=== PATIENT | male | born 1935 | race Caucasian/White ===

== ENCOUNTER 2018-10-15 11:07 | Outpatient (REF) | payer MEDICARE, SELFPAY ==
[2018-10-15 21:57] LABS: Anion Gap 4.9 mmol/L (3-11); BUN 13 mg/dL (7-18); CO2 33.1 mmol/L (21.0-32.0); CREATININE 1.02 mg/dL (0.70-1.30); Calcium 8.8 mg/dL (8.5-10.1); Chloride 104 mmol/L (98-107); Cholesterol 135 mg/dL (50-200); Glucose 91 mg/dL (70-100); HDL Cholesterol 41 mg/dL (40-60); LDL CHOLESTEROL 68 mg/dL (<100); Potassium 4.1 mmol/L (3.5-5.1); Sodium 142 mmol/L (136-145); Triglyceride 151 mg/dL (30-150)
[2018-10-19 10:13] LABS: PSA, Diagnostic 0.7 ng/ml (0-6.5)
== END 2018-10-15 11:27 ==
LOC: NCHCN 11:07
PROVIDERS: PCP Internal Medicine; Visit Provider Internal Medicine
DX: E78.5 Hyperlipidemia, unspecified (principal); I10 Essential (primary) hypertension; I25.10 Atherosclerotic heart disease of native coronary artery without angina pectoris; K21.9 Gastro-esophageal reflux disease without esophagitis; C61 Malignant neoplasm of prostate
CPT/HCPCS: 80048; 80061; 83721; 84153

== ENCOUNTER 2018-12-28 22:27 | Outpatient (REF) | payer MEDICARE, SELFPAY ==
[2018-12-28 21:46] LABS: BUN 12 mg/dL (7-18); CREATININE 1.02 mg/dL (0.70-1.30); Calcium 8.7 mg/dL (8.5-10.1); Chloride 101 mmol/L (98-107); Creatine Kinase 90 U/L (39-308); Glucose 127 mg/dL (70-100); Potassium 3.9 mmol/L (3.5-5.1); Sodium 139 mmol/L (136-145)
== END 2018-12-28 22:47 ==
LOC: NCHCN 22:27
PROVIDERS: PCP Internal Medicine; Visit Provider Internal Medicine
DX: R07.9 Chest pain, unspecified (principal)
CPT/HCPCS: 80048; 82550

== ENCOUNTER 2019-01-27 00:13 | Outpatient (CLI) | payer MEDICARE, SELFPAY ==
--- NOTE | 2019-01-27 09:30 | MERGEMPI_ITS ---
*[facility]* *[facility]* [address] [place] [address] Myocardial Perfusion Imaging - SPECT Regadenoson Date of study: 01/27/2019 *PATIENT PRESENTATION* Height: 170.2cm (67in) Blood Pressure: Weight: 80.9kg (178lb) BSA: 1.97m^2 Referring physician: Gavin Jimenez Ordering physician: Shaniqua Mcghee Impressions: Study suggests small to moderate myocardial infarction, with minimal overall ischemia in the territory of the left anterior descending coronary artery. Summary: 1. Myocardial perfusion imaging: There is a moderate sized, moderately intense, predominantly fixed defect involving the apical anterior, apical lateral, and apical wall(s). This suggests moderate myocardial infarction. Overall ischemia: minimal. 2. The calculated left ventricular ejection fraction after stress: 69%. LV global systolic function is normal. No left ventricular regional motion abnormality. 3. Stress ECG conclusions: The stress ECG is negative. Recommendations: 1. Medical management is recommended. 2. Clinical correlation is recommended. Indication: R07.89, Appropriate Use Criteria: A (Appropriate). History: REASON FOR VISIT: RECENT CHEST PAINS WITH A HISTORY OF SIGNIFICANT CAD, STATUS POST NM IN 2001, STATUS POST LAD STENT, HISTORY OF TIA, HTN, HYPERLIPIDEMIA AND PROSTATE CANCER. PT REPORTS HE EXPERIENCED CHEST PAINS DURING THE NIGHT AFTER CHOPPING ICE THIS SPRING. AND AGAIN A WEEK AGO DURING THE NIGHT AT 2AM AFTER EATING CANADIAN FOOD. HE STATES HE TOOK ROLAIDS AND 2 TYLENOL THE CHEST PAIN SUBSIDED AFTER A FEW HOURS. Risk factors: Hypertension. Dyslipidemia. Cholesterol: 135mg/dl. HDL: 41mg/dl. LDL: 68mg/dl. Triglycerides: 151mg/dl. ALLERGIES: NO KNOWN ALLERGIES. MEDICATIONS: ROSUVASTATIN 40 MG Q HS. OMEPRAZOLE 20 MG DAILY. NITROGLYCERIN 0.4 MG PRN. NAPROXEN 500 MG BID. METOPROLOL TARTRATE 50 MG BID. LISINOPRIL 1 TAB JONATHAN. CLOPIDOGREL 75 MG DAILY. ASPRIN 81 MG DAILY. Imaging Technique: Protocol: Christ Salvationadenoson. Acquisition: Gated SPECT; 1 day - rest/stress. The patient was imaged in the supine position. Attenuation correction used. Isotope administration: - Rest. Tc[99m]-sestamibi. Dose: 10.2mCi. Injection time: 09:50 AM. Injection to stress time: 00:45. - Stress. Tc[99m]-sestamibi. Dose: 32mCi. Injection time: 11:14 AM. 1-2 min before end of exercise Baseline ECG: SINUS BRADYCARDIA. HR 54 BPM. Sinus bradycardia. Stress protocol: +--------+--+ + + !Stage !HR!BP (mmHg) !Comments ! +--------+--+ + + !Baseline!54!126/62 (83)! ! +--------+--+ + + !1 min !82!130/60 (83)!Inject Regadenoson.! +--------+--+ + + !3 min !74!132/70 (91)! ! +--------+--+ + + !6 min !71!132/60 (84)! ! +--------+--+ + + * Stress results: The rate-pressure product for the peak heart rate and blood pressure was 71696md Hg/min. Stress ECG: STRESS TEST ENDED IN 6 MINUTES & 45 SECONDS. PT EXPERIENCED NO SIGNIFICANT SIDE EFFECTS FROM LEXISCAN INJECTION. NORMAL HEART RATE AND BLOOD PRESSURE RESPONSE TO LEXISCAN INJECTION. NO ECTOPY. NO ANGINA. NO SIGNIFICANT ST SEGMENT CHANGES. The stress ECG is negative. Myocardial perfusion: Imaging information: gated. Image quality reduced due to diaphragmatic attenuation. Left ventricular size is normal. There is a moderate sized, moderately intense, predominantly fixed defect involving the apical anterior, apical lateral, and apical wall(s). This suggests moderate myocardial infarction. Overall ischemia: minimal. Ventricular Function (Wall Motion): The calculated left ventricular ejection fraction after stress: 69%. LV global systolic function is normal. No left ventricular regional motion abnormality. Study data: Gavin Jimenez MD supervised and was readily available during the procedure. This study was interpreted by [facility]. Study status: Routine. Consent: The risks, benefits, and alternatives to the procedure were explained to the patient and informed consent was obtained. Procedure: Initial setup. A baseline ECG was recorded. Surface ECG leads and manual cuff blood pressure measurements were monitored. Heart sounds: Normal. Lung sounds: Normal. Regadenoson stress test. Stress testing was performed, with regadenoson by intravenous bolus, for a total dose of 0.4mgover 10.00sec, followed by a 5ml saline flush. The infusion was terminated due to per protocol. Study completion: All catheters inserted during the procedure were removed. The patient tolerated the procedure well and was discharged from the lab. Discharge: The patient left the laboratory in stable condition. Birthdate: Patient birthdate: 1935. Sex: Gender: male. Study date: Study date: 01/27/2019. Study time: 00:01 AM. Signature Documentation: - The imaging portion of this study was interpreted by [facility] [employer] [facility] Gavin Jimenez MD. - The Stress ECG portion of this study was interpreted by Gavin Jimenez MD. Electronically signed by Gavin Jimenez 01/27/2019 12:47
[2019-01-27] MEDS: Regadenoson 0.4 MG/5 ML SYR IVP (11:31)
== END 2019-01-27 00:33 ==
PROVIDERS: PCP Internal Medicine; Visit Provider Family Medicine
DX: R07.89 Other chest pain (principal); R94.30 Abnormal result of cardiovascular function study, unspecified; I25.2 Old myocardial infarction; I25.10 Atherosclerotic heart disease of native coronary artery without angina pectoris; I10 Essential (primary) hypertension; E78.5 Hyperlipidemia, unspecified
CPT/HCPCS: 78452; 93016; 93018; 93017; J2785

== ENCOUNTER 2020-04-03 13:43 | Outpatient (REF) | payer MEDICARE, SELFPAY ==
[2020-04-03 21:43] LABS: Anion Gap 5.7 mmol/L (3-11); BUN 14 mg/dL (7-18); CO2 31.3 mmol/L (21.0-32.0); Chloride 103 mmol/L (98-107); Glucose 121 mg/dL (74-106); Potassium 4.4 mmol/L (3.5-5.1); Sodium 140 mmol/L (136-145)
== END 2020-04-03 14:03 ==
LOC: NCHCN 13:43
PROVIDERS: PCP Internal Medicine; Visit Provider Internal Medicine
DX: I10 Essential (primary) hypertension (principal)
CPT/HCPCS: 80048

== ENCOUNTER 2021-04-05 12:39 | Outpatient (REF) | payer MEDICARE, SELFPAY ==
[2021-04-05 13:57] LABS: Anion Gap 5.9 mmol/L (3-11); BUN 10 mg/dL (7-18); CO2 31.1 mmol/L (21.0-32.0); CREATININE 1.1 mg/dL (0.70-1.30); Calcium 9.2 mg/dL (8.5-10.1); Chloride 103 mmol/L (98-107); Glucose 147 mg/dL (74-106); Potassium 4.6 mmol/L (3.5-5.1); Sodium 140 mmol/L (136-145)
== END 2021-04-05 12:40 | disposition home or self-care (01) ==
LOC: NCHCN 12:39
PROVIDERS: PCP Internal Medicine; Visit Provider Internal Medicine
DX: Z00.00 Encounter for general adult medical examination without abnormal findings (principal); C61 Malignant neoplasm of prostate; E78.5 Hyperlipidemia, unspecified
CPT/HCPCS: 80048; 84153

== ENCOUNTER 2021-07-18 09:21 | Outpatient (REF) | payer MEDICARE, SELFPAY ==
[2021-07-18 22:08] LABS: PSA, Screening 2.8 ng/mL (0.0-6.5)
== END 2021-07-18 09:22 | disposition home or self-care (01) ==
LOC: NCHCN 09:21
PROVIDERS: PCP Internal Medicine; Visit Provider Family Medicine
DX: C61 Malignant neoplasm of prostate (principal); Z12.5 Encounter for screening for malignant neoplasm of prostate
CPT/HCPCS: 84153

== ENCOUNTER 2021-10-01 04:14 | Outpatient (CLI) | payer MEDICARE, SELFPAY ==
[2021-10-01 10:40] LABS: Abs Immature Grans 0.02 10^3/uL (0.0-0.06); Absolute Basophil Count 0.06 10^3/uL (0.0-0.2); Absolute Eosinophil Count 0.15 10^3/uL (0.0-0.7); Absolute Lymphocyte Count 2.86 10^3/uL (1.2-3.4); Absolute Monocyte Count 0.78 10^3/uL (0.1-0.8); Absolute Neutrophil Count 5.11 10^3/uL (1.2-6.7); Basophils % 0.7; Eosinophils % 1.7; HCT 48.6 % (40.0-50.0); HGB 16.1 g/dL (13.5-17.5); Immature Grans % 0.2; Lymphocytes % 31.8; MCH 30.6 pg (27.0-33.0); MCHC 33.1 % (32.0-36.0); MCV 92.4 fL (80-95); MPV 12.3 fL (8.0-11.0); Monocytes % 8.7; Neutrophils % 56.9; Nucleated RBC 0 %; Platelet Count 138 10^3/uL (130-400); RBC 5.26 10^6/uL (4.36-5.78); RDW 12.7 % (11.8-14.1); RDW-SD 43.3 fL; WBC 8.98 10^3/uL (4.4-10.8)
[2021-10-01 11:50] LABS: ALT 31 U/L (16-63); AST 25 U/L (15-37); Albumin 3.6 g/dL (3.4-5.0); Alkaline Phosphatase 68 U/L (46-116); Anion Gap 5.3 mmol/L (3-11); BUN 10 mg/dL (7-18); Bilirubin, Total 0.6 mg/dL (0.2-1.0); CO2 32.7 mmol/L (21.0-32.0); CREATININE 1.1 mg/dL (0.70-1.30); Calcium 9.2 mg/dL (8.5-10.1); Chloride 100 mmol/L (98-107); Glucose 131 mg/dL (74-106); Potassium 4.3 mmol/L (3.5-5.1); Sodium 138 mmol/L (136-145); Total Protein 6.9 g/dL (6.4-8.2)
[2021-10-02 13:33] LABS: PSA, Ultrasensitive 3.4 ng/mL (<= 7.2)
== END 2021-10-01 04:15 | disposition home or self-care (01) ==
LOC: LBO 04:14
PROVIDERS: PCP Internal Medicine; Visit Provider Internal Medicine
DX: C61 Malignant neoplasm of prostate (principal)
CPT/HCPCS: 36415; 80053; 84153; 85025

== ENCOUNTER 2021-12-04 01:26 | Outpatient (CLI) | payer MEDICARE, SELFPAY ==
[2021-12-04 14:07] LABS: Abs Immature Grans 0.02 10^3/uL (0.0-0.06); Absolute Basophil Count 0.06 10^3/uL (0.0-0.2); Absolute Eosinophil Count 0.12 10^3/uL (0.0-0.7); Absolute Lymphocyte Count 2.51 10^3/uL (1.2-3.4); Absolute Neutrophil Count 4.53 10^3/uL (1.2-6.7); Basophils % 0.8; Eosinophils % 1.5; HGB 15.9 g/dL (13.5-17.5); Immature Grans % 0.3; MCH 31.1 pg (27.0-33.0); MCHC 33.1 % (32.0-36.0); MCV 93.8 fL (80-95); Monocytes % 7.7; Neutrophils % 57.7; Nucleated RBC 0 %; Platelet Count 129 10^3/uL (130-400); RBC 5.12 10^6/uL (4.36-5.78); RDW 12.5 % (11.8-14.1); RDW-SD 43.4 fL; WBC 7.84 10^3/uL (4.4-10.8)
[2021-12-04 14:58] LABS: ALT 27 U/L (16-63); AST 25 U/L (15-37); Albumin 3.5 g/dL (3.4-5.0); Alkaline Phosphatase 65 U/L (46-116); Anion Gap 4.9 mmol/L (3-11); BUN 9 mg/dL (7-18); Bilirubin, Total 0.5 mg/dL (0.2-1.0); CO2 32.1 mmol/L (21.0-32.0); CREATININE 1.1 mg/dL (0.70-1.30); Calcium 8.5 mg/dL (8.5-10.1); Chloride 102 mmol/L (98-107); Glucose 154 mg/dL (74-106); Potassium 4.2 mmol/L (3.5-5.1); Sodium 139 mmol/L (136-145); Total Protein 6.7 g/dL (6.4-8.2)
[2021-12-06 09:42] LABS: PSA, Ultrasensitive 3.3 ng/mL (<= 7.2)
== END 2021-12-04 01:27 | disposition home or self-care (01) ==
LOC: LBO 01:26
PROVIDERS: PCP Internal Medicine; Visit Provider Internal Medicine
DX: C61 Malignant neoplasm of prostate (principal)
CPT/HCPCS: 36415; 80053; 84153; 85025

== ENCOUNTER 2021-12-05 01:50 | Outpatient (CLI) | payer MEDICARE, SELFPAY ==
--- NOTE | 2021-12-05 08:30 | DI.NM_ITS ---
Exam(s) NM BONE SCAN WHOLE BODY GRP EXAM: NM BONE SCAN WHOLE BODY GRP CLINICAL HISTORY: PROSTATE CANCER C61, S/P DEFINITIVE THERAPY W/ RISING PSA. TECHNIQUE: Injected Dose: 25 mCi Tc-99m MDP Delayed Images: 2-3 hours. COMPARISON: Scan performed today was reviewed FINDINGS: There is uptake in both sides of the left knee consistent with degenerative change. There is a small focus of increased uptake seen in the mid left femur, possibly significant. There a re no other foci of increased uptake in the lower extremities nor elsewhere in the skeleton. IMPRESSION: 1. Small focus of increased uptake seen just below the mid aspect of the left femur. Recommend plain films of the left femur. 2. Some uptake in the left knee consistent with degenerative change. No abnormal uptake in the oppo site-right knee. DATA REPOSITORY:
--- NOTE | 2021-12-05 10:40 | DI.CT_ITS ---
Exam(s) CT CHEST/ABD/PEL W EXAM: CT CHEST/ABD/PEL W CLINICAL HISTORY: PROSTATE CANCER C61. TECHNIQUE: Imaging Protocol: Axial computed tomography images with coronal and sagittal reformatted images were created and reviewed CONTRAST MATERIAL: Intravenous: Omnipaque 350 Contrast volume:100 ml Oral: None COMPARISON: CT CHEST FOR PULMONARY EMBOLUS from 09/01/2014 FINDINGS: CHEST: LUNGS: No infiltrates nor ominous pulmonary nodules. There are no pleural effusions.. MEDIASTINUM: There is no hilar nor mediastinal adenopathy. Visualized thyroid unremarkable. CARDIAC: Heart size upper normal. No pericardial effusion.Caliber of the thoracic aorta is within no rmal limits. OSSEOUS: No lytic nor blastic lesions identified. ABDOMEN: There is no ascites. LIVER: There are no focal hepatic lesions nor dilatation of intrahepatic ducts. GALLBLADDER/BILIARY: There is a 1.2 x 1.2 cm gallstone evident in the gallbladder neck. Gallbladder wall is not truly edematous and the gallbladder is not distended. CBD is not dilated. No dilatation of intrahepatic ducts. PANCREAS: No evidence of pancreatic mass nor dilatation of the pancreatic duct. SPLEEN: Spleen is not enlarged. There is a small splenule noted medial to the spleen, measuring 1.3 x 1.3 cm. There is a 7 millimeter cyst in the posterior aspect of the spleen. Another cyst measurin g 1.2 cm is seen in the medial aspect the spleen. Splenic and portal veins are patent. ADRENALS: There are no significant adrenal masses. KIDNEYS: No calculi nor hydronephrosis. No solid renal masses. There are multiple cysts in the right kidney, the largest measuring 1.2 cm. Lesser amount of cysts noted in the left clean the. The large st measures 1 cm, located in the superior pole. There are no hydronephrosis. No hydroureter. ABDOMINAL AORTA: Calcified but not enlarged. Common iliac arteries are not enlarged. LYMPH NODES: There is no retroperitoneal nor paraaortic adenopathy. ABDOMINAL WALL: No evidence of significant anterior abdominal wall nor inguinal hernia. GI: There is no evidence of bowel obstruction. PELVIS: LYMPH NODES: There is no intrapelvic nor inguinal adenopathy. GI: No evidence of appendicitis.No evidence of sigmoid diverticulitis. URINARY BLADDER: No calculi nor masses evident REPRODUCTIVE: There are surgical clips in the region of the nonenlarged prostate. There is no adjace nt obturator adenopathy. No adenopathy along the internal iliac vessels. OSSEOUS: No significant osseous lesions. IMPRESSION: 1. No evidence of metastatic disease nor lymphadenopathy in the chest, abdomen, and pelvis. 2. Clips are seen in the region of the prostate. Prostate itself is not significantly enlarged. 3. Multiple small cysts in the kidneys, no solid renal masses. No hydronephrosis. 4. Cholelithiasis. There is a single prominent calcified gallstone in the gallbladder neck region. Gallbladder is not distended nor obviously edematous and there is no dilatation of the CBD nor of int rahepatic ducts. There are 2 small cysts in the spleen. RADIATION DOSE DELIVERED: 2,188.95mGy.cm Total DLP DATA REPOSITORY: All CT scans at this facility are submitted to the National Radiology Data Registry (NRDR) Dose Index Registry (DIR) with the [employer] (ACR). RADIATION OPTIMIZATION: All CT scans at this facility use at least one of these dose optimization te chniques: automated exposure control; mA and/or kV adjustment per patient size (includes targeted exa ms where dose is matched to clinical indication); or iterative reconstruction.
[2021-12-05] MEDS: Breeza Beverage 473 ML BTL PO ×2 (10:55→10:57)
[2021-12-05] MEDS: Omnipaque 350 MG/ML 50 ML BTL PO (10:56)
[2021-12-05] MEDS: Normal Saline Flush 10 ML SYR IVP (10:56)
[2021-12-05] MEDS: Omnipaque 350 MG/ML 100 ML BTL IJ (10:57)
== END 2021-12-05 02:10 ==
PROVIDERS: PCP Internal Medicine; Visit Provider Nurse Practitioner Adult Health
DX: C61 Malignant neoplasm of prostate (principal); K80.20 Calculus of gallbladder without cholecystitis without obstruction; N28.1 Cyst of kidney, acquired
CPT/HCPCS: 74177; 78306; 71260; J3490; Q9967

== ENCOUNTER 2022-01-29 22:28 | Outpatient (REF) | payer MEDICARE, SELFPAY | END 2022-01-29 22:29 | disposition home or self-care (01) | LOC: NCHCN 22:28 | PROVIDERS: PCP Internal Medicine; Visit Provider Nurse Practitioner Family | DX: R31.9 Hematuria, unspecified (principal) | CPT/HCPCS: 87086 ==

== ENCOUNTER 2022-02-11 16:16 | Outpatient (REF) | payer MEDICARE, SELFPAY ==
[2022-02-11 20:28] LABS: Bilirubin Negative (Negative); Blood Large (Negative); Clarity Cloudy (Clear); Glucose Negative (Negative); Ketones Negative (Negative); Leukocyte Esterase Large (Negative); Nitrite Positive (Negative); Specific Gravity 1.025 (1.005-1.025); Urobilinogen 0.2 EU/dL (Up TO 0.2)
[2022-02-11 21:26] LABS: RBC >50 HPF (0-2); WBC >50 HPF (0-5)
[2022-02-11 21:27] LABS: C & S Indicated? C&S Done As Ordered
== END 2022-02-11 16:17 | disposition home or self-care (01) ==
LOC: NCHCN 16:16
PROVIDERS: PCP Internal Medicine; Visit Provider Internal Medicine
DX: R31.9 Hematuria, unspecified (principal)
CPT/HCPCS: 87077; 81003; 81015; 87086; 87186

== ENCOUNTER → 2022-02-15 14:44 | Outpatient (BNVA) | payer MEDICARE, SELFPAY | PROVIDERS: PCP Internal Medicine; Referring Provider Internal Medicine; Visit Provider Urology | DX: Z79.01 Long term (current) use of anticoagulants (principal); R31.0 Gross hematuria | CPT/HCPCS: 99204 ==

== ENCOUNTER 2022-03-01 12:26 | Outpatient (REF) | payer MEDICARE, SELFPAY ==
[2022-03-01 12:33] LABS: Source Nasal/Nares
[2022-03-01 15:13] LABS: COVID-19 PCR Negative (Negative)
== END 2022-03-01 12:27 | disposition home or self-care (01) ==
LOC: LBN 12:26
PROVIDERS: PCP Internal Medicine; Visit Provider Urology
DX: Z20.822 Contact with and (suspected) exposure to COVID-19 (principal); Z01.818 Encounter for other preprocedural examination
CPT/HCPCS: 87635; U0005

== ENCOUNTER 2022-03-04 07:19 | Day surgery (SDC) | payer MEDICARE, SELFPAY ==
--- NOTE | 2022-03-04 06:16 | W.ANESPRE ---
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 Resection Bladder Tumor Conrado Day MD Meds Allergies and Home Medications Allergies Allergy/AdvReac Type Severity Reaction Status Date / Time No Known Allergies Allergy Unverified 03/04/22 07:43 Home Medication Medication Instructions Recorded lisinopril 10 mg tablet 1 tab PO DAILY 12/10/12 metoprolol tartrate 50 mg tablet 50 mg PO BID 12/10/12 omeprazole 20 mg capsule,delayed 20 mg PO DAILY@0730 12/10/12 release rosuvastatin 40 mg tablet (Crestor) 40 mg PO HS 12/10/12 clopidogrel 75 mg tablet (Plavix) 75 mg PO DAILY #30 tabs 12/12/12 nitroglycerin 0.4 mg sublingual 1 tab PO PRN PRN 09/01/14 tablet (Nitrostat) naproxen 500 mg tablet 500 mg PO BID pericarditis #60 tabs 09/02/14 Current Visit Medications: Current Medications Generic Name Dose Route Start Last Admin Trade Name Freq PRN Reason Stop Dose Admin Ringer's Solution 1,000 mls @ 80 mls/hr 03/04/22 06:00 IV 03/31/22 23:59 INFUSION BHASKAR Cefazolin Sodium/Dextrose 2 gm in 50 mls @ 100 mls/hr 03/04/22 06:00 Ancef Duplex IVPB 03/31/22 23:59 PREOP BHASKAR IV Miscellaneous Supplies 1 each 03/04/22 06:00 Iv Access IV 03/31/22 23:59 DIRECTED BHASKAR Sodium Chloride 0 ml 03/04/22 06:00 Normal Saline Flush 10 Ml Syr IV 03/31/22 23:59 PRN PRN Sodium Chloride 0 ml 03/04/22 06:00 Normal Saline 10 Ml Vial IJ 03/31/22 23:59 DIRECTED PRN Sterile Water 0 ml 03/04/22 06:00 Water,Injection,Sterile 10 Ml Vial IJ 03/31/22 23:59 DIRECTED PRN PFSH Active Problems Active Problems: Problem Status Onset Code Atypical chest pain 09/01/14 R07.89 Coronary artery disease I25.10 Hypertension I10 Hyperlipidemia E78.5 Thrombocytopenia D69.6 GERD (gastroesophageal reflux disease) K21.9 H/O prostate cancer Z85.46 Lower urinary tract symptoms (LUTS) R39.9 h/o tia Benign head tremor G25.0 Acne rosacea L71.9 Medical History Medical History Gross hematuria Hiatal hernia Surgical History Surgical History H/O hernia repair Hx of heart artery stent [id number] F/U with PCP at [facility] Tobacco Smoking/Tobacco Use Status: Former Tobacco Use Alcohol Alcohol Intake: never Substance Use Substance use: Never Substance use type: does not use Vital Signs and Lab Results Lab Results Blood Type / Crossmatch: No Data to Display Complete Blood Count: No Data to Display Complete Metabolic Panel: No Data to Display Liver Function Panel: No Data to Display Coagulation Panel: No Data to Display Cardiac Panel: No Data to Display Arterial Blood Gas: No Data to Display Venous Blood Gas: No Data to Display Pancreas Panel: No Data to Display Thyroid Panel: No Data to Display Infectious Disease: Coronavirus (COVID-19)(PCR) Negative (Negative) 03/01/22 09:45 Coronavirus 2019 Source Nasal/Nares 03/01/22 09:45 Blood Cultures: No Data to Display Toxicology Panel: No Data to Display Imaging and Studies Imaging and Studies Study information below may be from another EMR and interpreted by another provider. Please see original notes in EMR for more complete details. Stress Test Summary: 01/2019: moderate sized, moderately intense, predominantly fixed defect involving the apical anterior apical later, and apical johnson - suggests MO. overall minimal ischemia. LVEF 69%. Echocardiogram Summary: 08/2014: LVEF 55-60%, small pericardial effusion. Carotid Artery Summary:: 12/02: no significant stenosis. Anesthesia Assessment and Plan Anesthesia History Personal History: No History of Anesthesia Complications Family History: No Family History of Anesthesia Complications Exercise Tolerance Exercise Tolerance: Metabolic Equivalents<4 Cardiac & Pulmonary Exam Cardiac Exam: Normal S1/S2 Heart Sounds Pulmonary Exam: Clear Bilateral Breath Sounds Implantable Cardiac Device Does patient have a Pacemaker or an ICD?: No Airway Exam Known Difficult Airway: No Mallampati Class: 3 Mouth Opening: Normal (> 3cm) Thyromental Distance: Greater than 3 cm Neck Range of Motion: Limited ROM Neck Circumference: Normal Teeth Condition: Generalized Poor Dentition and Other (States all of his top teeth are loose. He was informed that sometimes loose teeth my fall out/come out if we have to place an airway. ) ASA Classification ASA Score: ASA 3 Emergency Case?: No NPO Status NPO Status: NPO Clears >2 hours, Solids >8 hours Anesthesia Plan Resuscitation Status: Full Code Anesthesia Technique: General Anesthesia Airway Planned: Natural Airway Monitors Used: Standard Monitors Preoperative Comments:: 86 yo male with hematuria for cysto. Sig PMHx: HTN (lisinopril, metoprolol) , CAD (NTG/stent x 2), CVA/TIA (plavix), GERD (omeprazole).
[2022-03-04 07:47] VITALS: BP 156/64; PULSE 69; RESP 18; TEMP 36.5; O2SAT 97
--- NOTE | 2022-03-04 08:07 | W.PM.HP.N ---
Date of service: 03/04/22 Time of Service: 08:07 Assessment and Plan Assessment and plan (1) H/O prostate cancer: Status: Chronic (2) Gross hematuria: Assessment and plan: For cystoscopy and possible TURBT, possible fuguration of prostate or bladder bleeders History of Present Illness History of Present Illness Chief Complaint: Gross hematuria Narrative: This is an 86-year-old gentleman who has a history of prostate cancer that was diagnosed over 10 years ago. He was treated with a combination of androgen deprivation and external beam radiation. His PSA has been rising and he has been evaluated by medical oncology. The patient elected not to restart androgen deprivation. He had a bone scan and CT of the abdomen and pelvis which demonstrated no metastatic lesions. He has been having intermittent episodes of gross painless hematuria. He has a previous history of smoking but quit back in 1988. His urine culture showed no significant infection. He presents for cystoscopy to complete his hematuria work-up. Review of Systems Narrative: No fevers or chills No vision change or dysphasia No diabetes or thyroid dysfunction No shortness of breath, cough or hemoptysis No chest pain or palpitations Hx GERD. No hepatitis, ulcers, jaundice Hx TIA. No seizures or peripheral neuropathy On Plavix routinely. No gout PFSH All Active Problems Atypical chest pain (Acute 09/01/14) Coronary artery disease (Chronic) a. S/p SC 2001 presenting with chest pain b. S/p SC 2005 presenting with exertional dyspnea c. S/p LAD stenting d. Negative stress echo 2009 Hypertension (Chronic) Hyperlipidemia (Chronic) Thrombocytopenia (Chronic) GERD (gastroesophageal reflux disease) (Chronic) H/O prostate cancer (Chronic) a. T2N0M0 january score 9 b. S/p radiation treatment and androgen deprivation therapy Lower urinary tract symptoms (LUTS) (Chronic) h/o tia (Chronic) a. transient speech deficit b. Chronic Plavix since Benign head tremor (Chronic) Acne rosacea (Chronic) Medical History Gross hematuria Hiatal hernia Surgical History H/O hernia repair Hx of heart artery stent [id number] F/U with PCP at [facility] Social History Smoking/Tobacco Use Status: Former Tobacco Use Quit Date: 09/22/94 Smoking risk assessment performed?: Yes Alcohol Intake: never Drug use: Never Substance use type: does not use Do you feel safe at home: Yes Do you feel safe in your relationship?: Yes Additional Social history: unable to assess [facility] [employer] Allergies and Home Medications Allergies Allergy/AdvReac Type Severity Reaction Status Date / Time No Known Allergies Allergy Unverified 03/04/22 07:43 Home Medications Medication Instructions Recorded Confirmed Type lisinopril 10 mg tablet 1 tab PO DAILY 12/10/12 03/04/22 History metoprolol tartrate 50 mg tablet 50 mg PO BID 12/10/12 03/04/22 History omeprazole 20 mg capsule,delayed 20 mg PO DAILY@0730 12/10/12 03/04/22 History release rosuvastatin 40 mg tablet (Crestor) 40 mg PO HS 12/10/12 03/04/22 History clopidogrel 75 mg tablet (Plavix) 75 mg PO DAILY #30 tabs 12/12/12 03/04/22 Rx nitroglycerin 0.4 mg sublingual 1 tab PO PRN PRN 09/01/14 03/01/22 History tablet (Nitrostat) naproxen 500 mg tablet 500 mg PO BID pericarditis #60 tabs 09/02/14 03/01/22 Rx Exam Const General: cooperative and no acute distress Neck Neck: supple Resp Effort & Inspection: normal respiratory effort Auscultation: clear to auscultation bilaterally Cardio Rate: regular rate Rhythm: regular rhythm GI Palpation: soft and no masses Neuro General: patient alert, patient awake and patient oriented x3 Results Last Vital Signs Temp 36.5 C 03/04/22 07:47 Pulse 69 03/04/22 07:47 Resp 18 03/04/22 07:47 BP 156/64 H 03/04/22 07:47 Pulse Ox 97 03/04/22 07:47
[2022-03-04] MEDS: Lactated Ringers 1,000 ML 80 ML IV (08:08)
[2022-03-04 08:14] VITALS: BMI 29.0
--- NOTE | 2022-03-04 09:00 | RT.EKG_ITS ---
APPROVED REPORT Exam: Resting ECG Reason for Exam: ? new onset a-fib Patient Location: O HR:68 bpm ECG Measurements Heart Rate 68 AXIS W[place] [id number] P [id number] QRSd 80 QRS -20 QT 399 T 32 QTc 425 Conclusion Atrial fibrillation...V-rate 51- 85, irreg A-activity
--- NOTE | 2022-03-04 09:09 | W.PM.DSUDISC ---
Discharge Plan Disposition Patient Disposition: HOME Condition: Stable Discharge Details Reason For Visit: hematuria Attending Provider: Conrado Day Primary Care Provider: Kit Metcalf Home Meds and New Rx's Prescriptions: No Action rosuvastatin [Crestor] 40 MG tablet 40 mg PO HS lisinopril 10 MG tablet 1 tab PO DAILY metoprolol tartrate 50 MG tablet 50 mg PO BID omeprazole 20 MG capsule,delayed release(DR/EC) 20 mg PO DAILY@0730 clopidogrel [Plavix] 75 MG tablet 75 mg PO DAILY Qty: 30 0RF nitroglycerin [Nitrostat] 0.4 MG tablet, sublingual 1 tab PO PRN PRN naproxen 500 MG tablet 500 mg PO BID Qty: 60 0RF Discharge Instructions Additional Instructions: continue all home medications contact PCPs office to arrange evaluation of new onset atrial fibrillation once cleared by your PCP, my office will reschedule your surgical procedure Activity:: Activity as Tolerated Diet:: As Tolerated Discharge Orders Discharge Orders: Discharge Order (Routine); Ordered 03/04/22 Ordered By: Conrado Day DS: Diagnosis Discharge Diagnosis (1) H/O prostate cancer: Status: Chronic (2) Gross hematuria:
--- NOTE | 2022-03-04 10:14 | ANES.POST_ITS ---
Postoperative Evaluation Date, Time and Location Date Performed: 03/04/22 Time Performed: 10:14 Patient Location: Day Surgery Unit Vital Signs Most Recent Imported Vital Signs: Most Recent Vital Signs Temp Pulse Resp BP Pulse Ox 36.5 C 69 18 156/64 H 97 03/04/22 07:47 03/04/22 07:47 03/04/22 07:47 03/04/22 07:47 03/04/22 07:47 Pain Score Most Recent Pain Score: Most Recent Pain Score Pain Level 0 03/04/22 07:47 Assessment Mental Status: Awake (Alert & Oriented to Patient Baseline) Airway and Respiratory Function: Patent airway with normal (patient baseline) respiratory exam Cardiovascular Function: Hemodynamically Stable Hydration Status: Adequately Hydrated Nausea & Vomiting: No Nausea or Vomiting Pain: Pt. Denies Any Pain Peripheral Nerve Block: Patient did not receive a nerve block Teaching Patient Teaching: Advised to seek followup for the following concerns (See e xplanation) Concerns: New Onset Atrial Fibrillation Postoperative Comments:: Case was canceled due to new atrial fibrillation noted on the monitor. He was returned to [facility] and a 12 lead was done to confirm. It was discussed with the pt and his that new onset atrial fibrillation unfortunately is why he was canceled as it holds an increased risk of complications when not previously undiagnosed. the 12 lead confirms this Dx. His PCP was notified by [facility] that he will need to follow up, and he and his where instructed to follow up with his PCP.
[2022-03-04 10:20] VITALS: BP 161/92; PULSE 73; RESP 16; TEMP 36.5; O2SAT 98
== END 2022-03-04 10:15 | disposition home or self-care (01) ==
PROVIDERS: PCP Family Medicine; Visit Provider Urology
PROC: 0TBB8ZZ Excision of Bladder, Via Natural or Artificial Opening Endoscopic (ICD-10-PCS; principal; 2022-03-04 08:15)
DX: Z53.09 Procedure and treatment not carried out because of other contraindication (principal); I48.91 Unspecified atrial fibrillation; R31.0 Gross hematuria; Z85.46 Personal history of malignant neoplasm of prostate; I25.10 Atherosclerotic heart disease of native coronary artery without angina pectoris; I10 Essential (primary) hypertension; E78.5 Hyperlipidemia, unspecified; D69.6 Thrombocytopenia, unspecified; Z79.01 Long term (current) use of anticoagulants
CPT/HCPCS: 99214

== ENCOUNTER 2022-03-06 02:28 | Outpatient (CLI) | payer MEDICARE, SELFPAY ==
[2022-03-06 14:08] LABS: Abs Immature Grans 0.01 10^3/uL (0.0-0.06); Absolute Basophil Count 0.04 10^3/uL (0.0-0.2); Absolute Lymphocyte Count 2.02 10^3/uL (1.2-3.4); Absolute Monocyte Count 0.59 10^3/uL (0.1-0.8); Absolute Neutrophil Count 4.41 10^3/uL (1.2-6.7); Basophils % 0.6; Eosinophils % 1.4; HGB 15.1 g/dL (13.5-17.5); Immature Grans % 0.1; Lymphocytes % 28.2; MCH 31.3 pg (27.0-33.0); MCHC 33.6 % (32.0-36.0); MCV 93 fL (80-95); MPV 12.3 fL (8.0-11.0); Monocytes % 8.2; Neutrophils % 61.5; Platelet Count 119 10^3/uL (130-400); RBC 4.82 10^6/uL (4.36-5.78); RDW 12.8 % (11.8-14.1); RDW-SD 43.8 fL; WBC 7.17 10^3/uL (4.4-10.8)
[2022-03-06 14:50] LABS: ALT 21 U/L (16-63); AST 20 U/L (15-37); Albumin 3.2 g/dL (3.4-5.0); Alkaline Phosphatase 69 U/L (46-116); Anion Gap 5.5 mmol/L (3-11); BUN 13 mg/dL (7-18); Bilirubin, Total 0.5 mg/dL (0.2-1.0); CO2 31.5 mmol/L (21.0-32.0); CREATININE 1.2 mg/dL (0.70-1.30); Calcium 8.3 mg/dL (8.5-10.1); Chloride 104 mmol/L (98-107); Estimated GFR 57.54 (mL/min/1.73m2); Glucose 129 mg/dL (74-106); Sodium 141 mmol/L (136-145); Total Protein 6.5 g/dL (6.4-8.2)
[2022-03-08 08:38] LABS: PSA, Ultrasensitive 3.1 ng/mL
== END 2022-03-06 02:29 | disposition home or self-care (01) ==
LOC: LBO 02:28
PROVIDERS: Urology; PCP Family Medicine; Visit Provider Internal Medicine
DX: C61 Malignant neoplasm of prostate (principal)
CPT/HCPCS: 36415; 80053; 84153; 99281; 85025; 99282

== ENCOUNTER 2022-03-06 22:28 | Emergency (ER) | payer MEDICARE, SELFPAY ==
[2022-03-06 22:35] VITALS: BP 187/87; PULSE 70; RESP 19; TEMP 36.6; O2SAT 99
--- NOTE | 2022-03-06 23:04 | ED.GENADUL_ITS ---
Discharge Plan Disposition Patient Disposition: HOME Condition: Stable Discharge Details Clinical Impression: Gross hematuria Primary Care Provider: Kit Metcalf ED Provider: Pacheco Orozco Home Meds and New Rx's Prescriptions: Continued rosuvastatin [Crestor] 40 MG tablet 40 mg PO HS lisinopril 10 MG tablet 1 tab PO DAILY metoprolol tartrate 50 MG tablet 50 mg PO BID omeprazole 20 MG capsule,delayed release(DR/EC) 20 mg PO DAILY@0730 clopidogrel [Plavix] 75 MG tablet 75 mg PO DAILY Qty: 30 0RF nitroglycerin [Nitrostat] 0.4 MG tablet, sublingual 1 tab PO PRN PRN naproxen 500 MG tablet 500 mg PO BID Qty: 60 0RF Discharge Instructions Instructions: Hematuria (ED) Additional Instructions: The new medication you are taking the Xarelto is a different kind of blood thinner than the aspirin and plavix you have taken. It is going to make the blood in your urine worse while you take it. Follow up with your primary care provider and consider holding the xarelto until you have your cystoscopy if you have abdominal pain, fevers, chills, or severe back pain return to the emergency department. Medical Decision Making 86 yo male with years of blood in his urine, he states visible blood, comes in with continued blood in his urine. He was supposed to have a cystoscopy earlier this week but was cancelld because he was found to be in rate controlled afib that he has never been found to have before. HE followed up with his pcp and was started on xarelto and has had two doses of it and he noticed his urine appeared more bloody than normal so came here. He states he otherwise feels fine and at his baseline. He states he always has some trouble completely emptying his bladder but doesn't feel like it is worse now and feels it is at his baseline. He denies dysuria, fevers, chills, abdominal pain. He has no abdominal tenderness or cva tenderness. He does have gross hematuria but is urinating on his own. I discussed with him that being on the xarelto will not unexpectedly make his urine appear more bloody. He doesn't want to have a chandler as he is able to urinate which I feel is reasonable. I also offered to do a cbc and coags but he again declined to have this done which also seems reasonable given he has no new symptoms. He states he wants to follow up with his pcp and urology before deciding if he wants to stop taking the xarelto or not. He did not want any testing done and had capacity to make his own decisions and given he is urinating and has no new symptoms feel this is reasonable. He will follow up with his pcp and urology, return precautions given Differential Diagnosis Differential Diagnosis: chronic gross hematuria, prostate cancer Medical Records Medical records reviewed: Yes I reviewed the patient's medical records. HPI General Mode of arrival: ambulatory . Date/Time Provider Initiated Documentation: 03/06/22 22:48 . Limitations to Documentation: no limitations . Information obtained by: patient . History of Present Illness 86 year old M presents to the emergency department with the chief complaint of blood in urine, Patient started experiencing this year(s) and it has been constant. No relieving factors improve symptom(s), No exacerbating factors reported . Patient notes no other symptoms.. Related Data Home Medications Medication Instructions Recorded Confirmed lisinopril 10 mg tablet 1 tab PO DAILY 12/10/12 03/06/22 metoprolol tartrate 50 mg tablet 50 mg PO BID 12/10/12 03/06/22 omeprazole 20 mg capsule,delayed 20 mg PO DAILY@0730 12/10/12 03/06/22 release rosuvastatin 40 mg tablet (Crestor) 40 mg PO HS 12/10/12 03/06/22 clopidogrel 75 mg tablet (Plavix) 75 mg PO DAILY #30 tabs 12/12/12 03/06/22 nitroglycerin 0.4 mg sublingual 1 tab PO PRN PRN 09/01/14 03/06/22 tablet (Nitrostat) naproxen 500 mg tablet 500 mg PO BID pericarditis #60 tabs 09/02/14 03/06/22 Previous Rx's Medication Instructions Recorded clopidogrel 75 mg tablet (Plavix) 75 mg PO DAILY #30 tabs 12/12/12 naproxen 500 mg tablet 500 mg PO BID pericarditis #60 tabs 09/02/14 Allergies Allergy/AdvReac Type Severity Reaction Status Date / Time No Known Allergies Allergy Unverified 03/06/22 22:39 General Stated Complaint: Urinary MILLIE: 3 Review of Systems All systems reviewed & are unremarkable except as noted in HPI and below Constitutional Constitutional: Denies chills, Denies fever(s) and Denies weakness Cardiovascular Cardiovascular: Denies chest pain and Denies dyspnea Respiratory Respiratory: Denies cough and Denies dyspnea Gastrointestinal Gastrointestinal: Denies abdominal pain, Denies nausea and Denies vomiting Integumentary/Breasts Skin/Breast: Denies rash Neurologic Neurologic: Denies weakness PFSH All Active Problems (Updated 03/06/22 @ 23:06 by Pacheco Orozco MD) Gross hematuria (Acute) Atypical chest pain (Acute 09/01/14) Coronary artery disease (Chronic) a. S/p CT 2001 presenting with chest pain b. S/p CT 2005 presenting with exertional dyspnea c. S/p LAD stenting d. Negative stress echo 2009 Hypertension (Chronic) Hyperlipidemia (Chronic) Thrombocytopenia (Chronic) GERD (gastroesophageal reflux disease) (Chronic) H/O prostate cancer (Chronic) a. T2N0M0 january score 9 b. S/p radiation treatment and androgen deprivation therapy Lower urinary tract symptoms (LUTS) (Chronic) h/o tia (Chronic) a. transient speech deficit b. Chronic Plavix since Benign head tremor (Chronic) Acne rosacea (Chronic) Medical History (Updated 03/06/22 @ 23:06 by Pacheco Orozco MD) Gross hematuria Hiatal hernia Surgical History H/O hernia repair Hx of heart artery stent [id number] F/U with PCP at [facility] Social History Smoking/Tobacco Use Status: Former Tobacco Use Quit Date: 09/22/94 Smoking risk assessment performed?: Yes Alcohol Intake: never Drug use: Never Substance use type: does not use Do you feel safe at home: Yes Do you feel safe in your relationship?: Yes Additional [facility] Ex[facility] Const General: no acute distress Orientation: alert HENMT Head: normal to inspection Ears: external ears normal General nose exam: external nose normal Mouth: moist mucous membranes Eyes General: appearance normal, both eyes and all related structures Neck Neck: normal visual inspection Resp Effort & Inspection: normal respiratory effort and able to speak in complete sentences Cardio Rate: regular rate Skin General skin exam: no rashes or lesions noted Neuro General: patient alert and patient oriented x3 Extrem General: normal to inspection Psych Mental Status: mental status grossly normal Course Vital Signs Vital signs: Vital Signs Temperature 36.6 C 03/06/22 22:35 Pulse 70 03/06/22 22:35 Respiratory Rate 19 03/06/22 22:35 Blood Pressure 187/87 H 03/06/22 22:35 Pulse Oximetry 99 03/06/22 22:35 Temperature 36.6 C 03/06/22 22:35 Temperature Source Tympanic 03/06/22 22:35 Pulse 70 03/06/22 22:35 Respiratory Rate 19 03/06/22 22:35 Respiratory Effort 03/06/22 22:41 Blood Pressure 187/87 H 03/06/22 22:35 Blood Pressure Position Supine 03/06/22 22:35 Pulse Oximetry 99 03/06/22 22:35 Oxygen Delivery Method Room Air 03/06/22 22:35 Oxygen Flow Rate 0 03/06/22 22:35 Pain Level 0 03/06/22 22:41
[2022-03-06 23:15] VITALS: BP 132/76; PULSE 88; RESP 18; O2SAT 98
== END 2022-03-06 23:53 | disposition home or self-care (01) ==
PROVIDERS: Emergency Provider Emergency Medicine; PCP Family Medicine
DX: R31.0 Gross hematuria (principal); I48.91 Unspecified atrial fibrillation; Z79.01 Long term (current) use of anticoagulants; I10 Essential (primary) hypertension
CPT/HCPCS: 99281; 99282

== ENCOUNTER 2022-03-18 15:31 | Outpatient (REF) | payer MEDICARE, SELFPAY ==
[2022-03-18 19:15] LABS: HCT 48.5 % (40.0-50.0); HGB 16.4 g/dL (13.5-17.5); MCH 31.5 pg (27.0-33.0); MCHC 33.8 % (32.0-36.0); MCV 93 fL (80-95); Platelet Count 134 10^3/uL (130-400); RBC 5.21 10^6/uL (4.36-5.78); RDW 12.9 % (11.8-14.1); RDW-SD 44.2 fL; WBC 8.73 10^3/uL (4.4-10.8)
[2022-03-18 19:40] LABS: ALT 28 U/L (16-63); AST 25 U/L (15-37); Albumin 3.5 g/dL (3.4-5.0); Alkaline Phosphatase 66 U/L (46-116); Anion Gap 4.5 mmol/L (3-11); BUN 10 mg/dL (7-18); Bilirubin, Total 0.5 mg/dL (0.2-1.0); CO2 31.5 mmol/L (21.0-32.0); Chloride 102 mmol/L (98-107); Glucose 120 mg/dL (74-106); Potassium 4.7 mmol/L (3.5-5.1); Sodium 138 mmol/L (136-145); TSH (W/Ref FT4) 0.99 uIU/mL (0.36-3.74); Total Protein 6.7 g/dL (6.4-8.2)
== END 2022-03-18 15:32 | disposition home or self-care (01) ==
LOC: NCHCN 15:31
PROVIDERS: PCP Family Medicine; Visit Provider Family Medicine
DX: I48.0 Paroxysmal atrial fibrillation (principal); R31.9 Hematuria, unspecified
CPT/HCPCS: 80053; 85027; 84443

== ENCOUNTER → 2022-04-02 01:46 | Outpatient (CLI) | payer MEDICARE, SELFPAY ==
--- NOTE | 2022-04-02 14:00 | DI.US_ITS ---
APPROVED REPORT EXAM: Comprehensive 2D, Doppler, and color-flow Echocardiogram Patient Location: Out-Patient Discharge Planner: Faiza Engel RDCS (AE) Indications: A Fib h/o CAD Other Information Study Quality: Adequate Conclusion Normal left ventricular wall thickness and chamber size. Estimated ejection fraction is 55 to 60%. Wall motion is normal Normal right ventricular size and systolic function Left atrium is mildly dilated. The right atrium is normal in size Aortic valve is trileaflet and sclerotic with mild regurgitation. There is no aortic stenosis Normal mitral valve with mild regurgitation Normal tricuspid valve with trace to mild regurgitation. Estimated right ventricular systolic pressu re is 28 mmHg Patient was in atrial fibrillation with a controlled rate throughout the study Wall motion Left Ventricle The left ventricle is normal size. The left ventricular systolic function is normal. The left ventric ular ejection fraction is within the normal range. There is normal left ventricular wall thickness. T here is normal LV segmental wall motion. There is no ventricular septal defect visualized. LVEF is 55 -60%. Right Ventricle The right ventricle is normal size. The right ventricular systolic function is normal. The RVSP is 28 .5mmHg. Atria The left atrium size is mildly dilated The right atrium size is normal. The interatrial septum is int act with no evidence for an atrial septal defect. Aortic Valve The Aortic valve is sclerotic. Aortic valve is trileaflet. There is no aortic valvular stenosis. Mild aortic regurgitation. Mitral Valve The mitral valve is normal in structure. No evidence of mitral valve stenosis. Mild mitral regurgitat ion. Tricuspid Valve The tricuspid valve is normal in structure. There is no tricuspid valve stenosis. Trace to mild tricu spid regurgitation. Pulmonic Valve The pulmonary valve is normal in structure. There is no pulmonic valvular stenosis. Trace pulmonic re gurgitation. Great Vessels The aortic root is normal in size. The ascending aorta is normal in size. Aortic arch is not well vis ualized. IVC is normal in size and collapses >50% with inspiration. Pericardium There is no pericardial effusion. 2D Dimensions IVSD d PLAX 0.91 cm M: 0.6-1.2 LV Vol A2C d MOD 84.9 mL LVPW d PLAX 0.91 cm M: 0.6 - 1.2 LV Vol A4C d MOD 78.2 mL LVID d PLAX 4.67 cm M: 4.2 - 5.8 LA vol/ BSA A2C s A-L 37.6 mL/m2 LVDs 3.30 cm M: 2.5 - 4.0 LA Area A2C s MOD 22.75 cm2 Ao Root d 3.17 cm M: 3.1 - 3.7 LV EF A4C MOD 55.3 % RA Area A4C 17.32 cm2 LV EF A2C MOD 50.4 % RA Vol/ BSA A4C s A-L 24.5 mL/m2 LV EF Biplane MOD 51.8 % Ao Asc Diam d 3.15 cm M: 2.6 - 3.4 SV 42.36 mL LV EF Teichholz 55.6 % SV Index 22.15 mL/m2 LVEF (Alvarado's) 51.82 % M: 52 - 72 LV Volume 62.24 mL M: 62 - 150 LV Volume Index 32.58 mL/m2 M: 34 - 74 LV Vol Biplane MOD 81.7 mL FS 28.90 % M-Mode TAPSE 1.19 cm (M/F) >1.7 LV Diastology MV E' medial 0.116 (>0.07 m/s) MV E Vmax 1.13 (0.4-1.3 m/s) LV E/e MED 9.80 (<14) MV E' lateral 0.111 (>0.1 m/s) LV E/e LAT 10.20 (<14) MV E/E' medial 9.80 MV E/E' lateral 10.24 Aortic Valve LVOT Area 2.97 cm2 AoV Area Vmax 1.45 cm2 LVOT Vmax 0.81 m/s AoV Area/ BSA (Vmax) 0.76 cm2/m2 LVOT Mean Joe. 0.62 m/s GISEL Mean Joe. 1.62 cm2 LVOT Peak Grad 2.6 mmHg GISEL Mean Joe. Index 0.84 cm2/m2 LVOT Mean Grad 1.7 mmHg AR DT 2333 msec LVOT VTI 0.206 m AR PHT 677 msec LVOT Diam s 1.90 cm AoV Vmax 1.66 m/s Velocity Ratio 0.48 AoV Mean Joe. 1.14 m/s AoV Peak Grad 11.1 mmHg LVOT SV 61.14 mL AoV Mean Grad 5.8 mmHg AoV VTI 0.338 m AoV Area VTI 1.81 cm2 AoV Area/ BSA (VTI) 0.95 cm/m2 Mitral Valve MV DT 206 (160-240 msec) MV PHT 60 msec MV Area PHT 3.68 cm2 MV VTI 0.289 m MV Area VTI 2.12 (4.0-6.0 cm2) Pulmonary Valve PV Vmax 0.94 (0.5-1.5 m/s) RVOT Peak Gr. 2.17 mmHg PV Peak Grad 3.5 mmHg RVOT Mean Gr. 1.05 mmHg PV Mean Grad 1.8 mmHg RVOT VTI 0.164 m PV VTI 0.170 m RVOT Vmax 0.74 m/s Tricuspid Valve TR Peak Grad 25.4 mmHg TR Vmax 2.52 m/s RA Pressure 3.00 mmHg RVSP (TR) 28.5 mmHg
== END ==
PROVIDERS: PCP Family Medicine; Visit Provider Family Medicine
DX: I48.0 Paroxysmal atrial fibrillation (principal)
CPT/HCPCS: 93306

== ENCOUNTER 2022-04-19 18:27 | Outpatient (REF) | payer MEDICARE, SELFPAY ==
[2022-04-19 14:25] LABS: Source Nasal/Nares
[2022-04-19 16:45] LABS: COVID-19 PCR Negative (Negative)
== END 2022-04-19 18:28 | disposition home or self-care (01) ==
LOC: LBN 18:27
PROVIDERS: PCP Family Medicine; Visit Provider Urology
DX: Z20.822 Contact with and (suspected) exposure to COVID-19 (principal); Z01.818 Encounter for other preprocedural examination
CPT/HCPCS: 87635

== ENCOUNTER 2022-04-19 19:33 | Outpatient (REF) | payer MEDICARE, SELFPAY | END 2022-04-19 19:34 | disposition home or self-care (01) | LOC: LBN 19:33 | PROVIDERS: PCP Family Medicine; Visit Provider Urology ==

== ENCOUNTER 2022-04-22 07:02 | Day surgery (SDC) | payer MEDICARE, SELFPAY ==
[2022-04-22 07:22] VITALS: BP 148/71; PULSE 65; RESP 17; TEMP 36.6; O2SAT 99
[2022-04-22] MEDS: Lactated Ringers 1,000 ML 80 ML IV (07:49)
--- NOTE | 2022-04-22 07:55 | W.ANESPRE ---
General Info Date of Service Date Performed: 04/22/22 Height: 5 ft 7 in Weight: 81.657 kg Body Mass Index (BMI): 28.2 Surgical Procedure: Operation Date: 04/22/22 08:55 Proposed Procedure Side Surgeon p Transurethral Resection Bladder Tumor w/Cystoscopy Conrado Day MD Meds Allergies and Home Medications Allergies Allergy/AdvReac Type Severity Reaction Status Date / Time No Known Allergies Allergy Unverified 04/22/22 07:36 Home Medication Medication Instructions Recorded lisinopril 10 mg tablet 1 tab PO DAILY 12/10/12 metoprolol tartrate 50 mg tablet 50 mg PO BID 12/10/12 omeprazole 20 mg capsule,delayed 20 mg PO DAILY@0730 12/10/12 release rosuvastatin 40 mg tablet (Crestor) 40 mg PO HS 12/10/12 clopidogrel 75 mg tablet (Plavix) 75 mg PO DAILY #30 tabs 12/12/12 nitroglycerin 0.4 mg sublingual 1 tab PO PRN PRN 09/01/14 tablet (Nitrostat) naproxen 500 mg tablet 500 mg PO BID pericarditis #60 tabs 09/02/14 aspirin 81 mg tablet,delayed 81 mg PO DAILY 04/19/22 release Current Visit Medications: Current Medications Generic Name Dose Route Start Last Admin Trade Name Freq PRN Reason Stop Dose Admin Ringer's Solution 1,000 mls @ 80 mls/hr 04/22/22 06:00 04/22/22 07:49 IV 05/19/22 23:59 80 mls/hr INFUSION BHASKAR Administration Cefazolin Sodium/Dextrose 2 gm in 50 mls @ 100 mls/hr 04/22/22 06:00 Ancef Duplex IVPB 05/19/22 23:59 PREOP BHASKAR IV Miscellaneous Supplies 1 each 04/22/22 06:00 Iv Access IV 05/19/22 23:59 DIRECTED BHASKAR Sodium Chloride 0 ml 04/22/22 06:00 Normal Saline Flush 10 Ml Syr IV 05/19/22 23:59 PRN PRN Sodium Chloride 0 ml 04/22/22 06:00 Normal Saline 10 Ml Vial IJ 05/19/22 23:59 DIRECTED PRN Sterile Water 0 ml 04/22/22 06:00 Water,Injection,Sterile 10 Ml Vial IJ 05/19/22 23:59 DIRECTED PRN PFSH Active Problems Active Problems: Problem Status Onset Code Atypical chest pain 09/01/14 R07.89 Coronary artery disease I25.10 Hypertension I10 Hyperlipidemia E78.5 Thrombocytopenia D69.6 GERD (gastroesophageal reflux disease) K21.9 H/O prostate cancer Z85.46 Lower urinary tract symptoms (LUTS) R39.9 h/o tia Benign head tremor G25.0 Acne rosacea L71.9 Medical History Medical History A-fib Gross hematuria Hiatal hernia Surgical History Surgical History H/O hernia repair Hx of heart artery stent [id number] F/U with PCP at [facility] Tobacco Smoking/Tobacco Use Status: Former Tobacco Use Alcohol Alcohol Intake: never Substance Use Substance use: Never Substance use type: does not use Vital Signs and Lab Results Vital Signs Most Recent Vital Signs in EMR: Most Recent Vital Signs Temp Pulse Resp BP Pulse Ox 36.6 C 65 17 148/71 H 99 04/22/22 07:22 04/22/22 07:22 04/22/22 07:22 04/22/22 07:22 04/22/22 07:22 Lab Results Blood Type / Crossmatch: No Data to Display Complete Blood Count: No Data to Display Complete Metabolic Panel: No Data to Display Liver Function Panel: No Data to Display Coagulation Panel: No Data to Display Cardiac Panel: No Data to Display Arterial Blood Gas: No Data to Display Venous Blood Gas: No Data to Display Pancreas Panel: No Data to Display Thyroid Panel: No Data to Display Infectious Disease: Coronavirus (COVID-19)(PCR) Negative (Negative) 04/19/22 10:20 Coronavirus 2019 Source Nasal/Nares 04/19/22 10:20 Blood Cultures: No Data to Display Toxicology Panel: No Data to Display Imaging and Studies Imaging and Studies Study information below may be from another EMR and interpreted by another provider. Please see original notes in EMR for more complete details. Stress Test Summary: 01/2019: moderate sized, moderately intense, predominantly fixed defect involving the apical anterior apical later, and apical johnson - suggests ID. overall minimal ischemia. LVEF 69%. Echocardiogram Summary: 08/2014: LVEF 55-60%, small pericardial effusion. Carotid Artery Summary:: 12/02: no significant stenosis. Anesthesia Assessment and Plan Anesthesia History Personal History: No History of Anesthesia Complications Family History: No Family History of Anesthesia Complications Exercise Tolerance Exercise Tolerance: Metabolic Equivalents<4 Pertinent Negatives Pertinent Negatives: No Major Pulmonary Symptoms or Complaints Cardiac & Pulmonary Exam Cardiac Exam: Normal S1/S2 Heart Sounds Pulmonary Exam: Clear Bilateral Breath Sounds Implantable Cardiac Device Does patient have a Pacemaker or an ICD?: No Airway Exam Known Difficult Airway: No Mallampati Class: 3 Mouth Opening: Normal (> 3cm) Thyromental Distance: Greater than 3 cm Neck Range of Motion: Limited ROM Neck Circumference: Normal Teeth Condition: Generalized Poor Dentition and Other (States all of his top teeth are loose. He was informed that sometimes loose teeth may fall out/come out if we have to place an airway. ) ASA Classification ASA Score: ASA 3 Emergency Case?: No NPO Status NPO Status: NPO Clears >2 hours, Solids >8 hours Anesthesia Plan Resuscitation Status: Full Code Anesthesia Technique: General Anesthesia Airway Planned: Natural Airway Monitors Used: Standard Monitors Preoperative Comments:: 86 yo male with hematuria for cysto. Cancelled 03/04/22 for new onset afib. PCP evaluated and started xarelto. Patient has been off Xarelto since ED visit. Sig PMHx: HTN (lisinopril, metoprolol) , CAD (NTG/stent x 2), CVA/TIA (plavix), GERD (omeprazole).
--- NOTE | 2022-04-22 08:25 | W.PM.HP.N ---
Date of service: 04/22/22 Time of Service: 08:25 Assessment and Plan Assessment and plan (1) Gross hematuria: (2) H/O prostate cancer: Status: Chronic Assessment and plan: For cystoscopy and possible TUR bladder tumor History of Present Illness History of Present Illness Chief Complaint: Gross hematuria Narrative: This is an 87 year old man who has a history of prostate cancer that was diagnosed back in 2010.? He was treated with external beam radiation and androgen deprivation.? He cannot tell me exactly how long he was on androgen deprivation. Recently, his PSA has been rising.? He was referred back to medical oncology at the [facility].? A bone scan and CT scan were obtained.? No obvious metastatic disease was identified.? It was elected to monitor the PSA and not restart androgen deprivation just yet. He comes in to see me after 3 episodes of gross painless hematuria.? He did pass a clot.? He did not develop retention.? He did not experience any dysuria or flank pain.? He did notice some itching on the perineal skin. He is routinely on Plavix.? He is a previous smoker who quit back in 1988.? Prior to that, he smoked over a pack of cigarettes per day for over 40 years. He has been evaluated with a urinalysis and urine culture.? His culture only grew staph epidermidis. His CT scan showed no significant upper tract disease. He presents for cystoscopy to complete his hematuria workup. Review of Systems Narrative: No fevers or chills No vision change or dysphasia No diabetes or thyroid dysfunction No shortness of breath, cough or hemoptysis Atrial fibrillation. No chest pain Hx GERD. No hepatitis, ulcers, jaundice, diarrhea or constipation Hx TIA. No seizures, strokes or peripheral neuropathy No bleeding disorders or anemia No gout PFSH All Active Problems Atypical chest pain (Acute 09/01/14) Coronary artery disease (Chronic) a. S/p IL 2001 presenting with chest pain b. S/p IL 2005 presenting with exertional dyspnea c. S/p LAD stenting d. Negative stress echo 2009 Hypertension (Chronic) Hyperlipidemia (Chronic) Thrombocytopenia (Chronic) GERD (gastroesophageal reflux disease) (Chronic) H/O prostate cancer (Chronic) a. T2N0M0 january score 9 b. S/p radiation treatment and androgen deprivation therapy Lower urinary tract symptoms (LUTS) (Chronic) h/o tia (Chronic) a. transient speech deficit b. Chronic Plavix since Benign head tremor (Chronic) Acne rosacea (Chronic) Medical History A-fib Gross hematuria Hiatal hernia Surgical History H/O hernia repair Hx of heart artery stent [id number] F/U with PCP at [facility] Social History Smoking/Tobacco Use Status: Former Tobacco Use Quit Date: 09/22/94 Smoking risk assessment performed?: Yes Alcohol Intake: never Drug use: Never Substance use type: does not use Do you feel safe at home: Yes Do you feel safe in your relationship?: Yes Meds Allergies and Home Medications Allergies Allergy/AdvReac Type Severity Reaction Status Date / Time No Known Allergies Allergy Unverified 04/22/22 07:36 Home Medications Medication Instructions Recorded Confirmed Type lisinopril 10 mg tablet 1 tab PO DAILY 12/10/12 04/22/22 History metoprolol tartrate 50 mg tablet 50 mg PO BID 12/10/12 04/22/22 History omeprazole 20 mg capsule,delayed 20 mg PO DAILY@0730 12/10/12 04/22/22 History release rosuvastatin 40 mg tablet (Crestor) 40 mg PO HS 12/10/12 04/22/22 History clopidogrel 75 mg tablet (Plavix) 75 mg PO DAILY #30 tabs 12/12/12 04/22/22 Rx nitroglycerin 0.4 mg sublingual 1 tab PO PRN PRN 09/01/14 04/19/22 History tablet (Nitrostat) naproxen 500 mg tablet 500 mg PO BID pericarditis #60 tabs 09/02/14 04/22/22 Rx aspirin 81 mg tablet,delayed 81 mg PO DAILY 04/19/22 04/22/22 History release Exam Const General: cooperative Neck Neck: supple Resp Effort & Inspection: normal respiratory effort Auscultation: clear to auscultation bilaterally Cardio Rate: regular rate Rhythm: regular rhythm GI Palpation: soft Neuro General: patient alert, patient awake and patient oriented x3 Results Last Vital Signs Temp 36.6 C 04/22/22 07:22 Pulse 65 04/22/22 07:22 Resp 17 04/22/22 07:22 BP 148/71 H 04/22/22 07:22 Pulse Ox 99 04/22/22 07:22
[2022-04-22 09:00] VITALS: BMI 28.2
[2022-04-22] MEDS: ceFAZolin 2 GM/50 ML BAG IVPB (09:30)
[2022-04-22] MEDS: Lidocaine 2% Jelly 6 ML SYR (09:31)
--- NOTE | 2022-04-22 09:39 | PROST_PTH ---
PATIENT: Joel Wu LOC: [facility] U#:[id number] AGE/SX: 87/M ROOM: RE04/22/[address]: Conrado Day MD : [id number] BED: DIS: 04/22/2022 SPEC #: [id number] RECD: 04/22/22 12:30 STATUS: JOSE F REQ #: [id number] ADRIAN: 04/22/22 09:[address]: Conrado Day DEPT: Surgical Specimen RECD BY: Patricia Chang ENTERED: 04/22/22 12:32 SP TYPE: PROST OTHR DR: Kit Metcalf Tissues: 1 - PROSTATE CURRETTINGS Procedures: GROSS AND MICRO LEVEL 4 Comments: [id number]
--- NOTE | 2022-04-22 09:56 | W.PM.DSUDISC ---
Discharge Plan Disposition Patient Disposition: HOME Condition: Good Discharge Details Reason For Visit: hematuria Attending Provider: Conrado Day Primary Care Provider: Kit Metcalf Home Meds and New Rx's Prescriptions: No Action rosuvastatin [Crestor] 40 MG tablet 40 mg PO HS lisinopril 10 MG tablet 1 tab PO DAILY metoprolol tartrate 50 MG tablet 50 mg PO BID omeprazole 20 MG capsule,delayed release(DR/EC) 20 mg PO DAILY@0730 clopidogrel [Plavix] 75 MG tablet 75 mg PO DAILY Qty: 30 0RF nitroglycerin [Nitrostat] 0.4 MG tablet, sublingual 1 tab PO PRN PRN naproxen 500 MG tablet 500 mg PO BID Qty: 60 0RF aspirin [Aspir-81] 81 mg Tablet,Delayed Release (Dr/Ec) 81 mg PO DAILY Discharge Instructions Additional Instructions: followup 2 weeks for pathology result may restart plavix and aspirin once no blood is seen in urine Activity:: Activity as Tolerated Shower/Bathe:: 24 hours Diet:: As Tolerated Discharge Orders Discharge Orders: Discharge Order (Routine); Ordered 04/22/22 Ordered By: Conrado Day DS: Diagnosis Discharge Diagnosis (1) Gross hematuria: (2) H/O prostate cancer: Status: Chronic
[2022-04-22 10:00] VITALS: BP 113/73; PULSE 72; RESP 20; TEMP 36.7; O2SAT 98
[2022-04-22] MEDS: Phenazopyridine 200 MG TAB PO (10:13)
--- NOTE | 2022-04-22 10:14 | ROE_ITS ---
Date of service: 04/22/22 Time of Service: 10:14 Operative Note Operative Note DATE OF PROCEDURE: 04/22/22 PRE-OP DIAGNOSIS: Hematuria POST-OP DIAGNOSIS: same PROCEDURE: cystoscopy, transurethral biopsy prostate tissue SURGEON: Conrado Day ANESTHESIA TYPE: General:No Airway Refer to Anesthesia Record ESTIMATED BLOOD LOSS: 10 PATHOLOGY: other (prostate tissue) COMPLICATIONS: None Patient was transported to: same day Patient's condition: stable Implants: 16 Estonian chandler with 10 cc sterile water in balloon Indications: This is an 87-year-old gentleman who has a history of prostate cancer. He was treated with a combination of androgen deprivation with external beam radiation of the prostate. His PSA has been rising suggestive of progression of his prostate cancer. He has a history of atrial fibrillation and a TIA. He is anticoagulated and he noticed gross hematuria. He has had upper tract imaging which showed no worrisome renal findings. He presents now for cystoscopy to complete his hematuria work-up. 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 Preoperative IV antibiotics were given. After successful induction of general anesthesia, he was placed in the dorsal lithotomy position. His genitalia was prepped and draped. 2% Xylocaine jelly was instilled into the urethra to act as a local anesthetic. A 22 Estonian rigid cystoscope was passed through the urethra into the bladder. The urethra and bladder were inspected using a 30 degree lens. The pendulous, bulbar and membranous urethra appeared normal with no strictures. There were prominent blood vessels along the prostatic mucosa. At the bladder neck, a prominent median lobe was present and there was some shaggy, erythematous mucosa overlying the median lobe. The bladder neck was entered and the bladder mucosa was inspected. Multiple erythematous patches consistent with radiation changes were noted. The remainder the bladder mucosa was pale. No papillary or nodular lesions were seen within the bladder when the bladder was inspected with both a 30 and a 70 degree lens. I then removed the cystoscope and passed a 24 Estonian resectoscope sheath through the urethra into the bladder. The scope was passed with a visual obturator and a 30 degree lens. I resected the median lobe with the overlying erythematous mucosa using an Ad resectoscope. I cauterized the base of the resection site along with the remainder of the erythematous prostate mucosa. Out toward the verumontanum, there was a nest of prostatic stones. I unroofed the nest and removed all the stones. The bladder was then filled with irrigant. The scope was removed. A 16 Estonian coud? tipped catheter was passed through the urethra into the bladder. The catheter balloon was inflated with 10 cc of sterile water. The catheter was hooked to gravity drainage. The catheter will be removed in the day surgery unit prior to the patient's discharge. The patient tolerated the procedure well with no complications. He was taken back to the day surgery unit in stable condition.
[2022-04-22 10:32] VITALS: BP 144/62; PULSE 59; RESP 17; TEMP 36.6; O2SAT 97
--- NOTE | 2022-04-22 11:20 | W.ANESPOSTOP ---
Postoperative Evaluation Date, Time and Location Date Performed: 04/22/22 Time Performed: 11:20 Patient Location: Day Surgery Unit Vital Signs Most Recent Imported Vital Signs: Most Recent Vital Signs Temp Pulse Resp BP Pulse Ox 36.6 C 59 L 17 144/62 H 97 04/22/22 10:32 04/22/22 10:32 04/22/22 10:32 04/22/22 10:32 04/22/22 10:32 Pain Score Most Recent Pain Score: Most Recent Pain Score Pain Level 0 04/22/22 10:32 Assessment Mental Status: Awake (Alert & Oriented to Patient Baseline) Airway and Respiratory Function: Patent airway with normal (patient baseline) respiratory exam Cardiovascular Function: Hemodynamically Stable Hydration Status: Adequately Hydrated Nausea & Vomiting: No Nausea or Vomiting Pain: Pt. Denies Any Pain Peripheral Nerve Block: Patient did not receive a nerve block
== END 2022-04-22 11:30 | disposition home or self-care (01) ==
PROVIDERS: PCP Family Medicine; Visit Provider Urology
PROC: 0TBB8ZZ Excision of Bladder, Via Natural or Artificial Opening Endoscopic (ICD-10-PCS; CPT 52601; principal; 2022-04-22 08:45)
DX: R31.0 Gross hematuria (principal); N42.0 Calculus of prostate; Z85.46 Personal history of malignant neoplasm of prostate; I48.91 Unspecified atrial fibrillation; I25.10 Atherosclerotic heart disease of native coronary artery without angina pectoris; I25.2 Old myocardial infarction; Z95.5 Presence of coronary angioplasty implant and graft; I10 Essential (primary) hypertension; E78.5 Hyperlipidemia, unspecified; D69.6 Thrombocytopenia, unspecified; Z79.01 Long term (current) use of anticoagulants; Z86.73 Personal history of transient ischemic attack (TIA), and cerebral infarction without residual deficits
CPT/HCPCS: 52601; 88305; J0690; J1100; J2405; J2704

== ENCOUNTER → 2022-05-03 11:43 | Outpatient (BNVA) | payer MEDICARE, SELFPAY | PROVIDERS: PCP Family Medicine; Referring Provider Family Medicine; Visit Provider Urology | DX: R31.0 Gross hematuria (principal); Z85.46 Personal history of malignant neoplasm of prostate | CPT/HCPCS: 99215 ==

== ENCOUNTER 2022-07-08 12:38 | Outpatient (CLI) | payer MEDICARE, SELFPAY ==
[2022-07-08 11:17] LABS: Abs Immature Grans 0.03 10^3/uL (0.0-0.06); Absolute Basophil Count 0.05 10^3/uL (0.0-0.2); Absolute Eosinophil Count 0.08 10^3/uL (0.0-0.7); Absolute Lymphocyte Count 2.33 10^3/uL (1.2-3.4); Absolute Monocyte Count 0.56 10^3/uL (0.1-0.8); Absolute Neutrophil Count 5.37 10^3/uL (1.2-6.7); Basophils % 0.6; HCT 49.4 % (40.0-50.0); HGB 16.5 g/dL (13.5-17.5); Immature Grans % 0.4; Lymphocytes % 27.7; MCH 30.7 pg (27.0-33.0); MCHC 33.4 % (32.0-36.0); MCV 92 fL (80-95); MPV 12.1 fL (8.0-11.0); Monocytes % 6.7; Neutrophils % 63.6; Platelet Count 129 10^3/uL (130-400); RBC 5.38 10^6/uL (4.36-5.78); RDW 13.1 % (11.8-14.1); RDW-SD 44.3 fL; WBC 8.42 10^3/uL (4.4-10.8)
[2022-07-08 11:32] LABS: ALT 26 U/L (16-63); AST 26 U/L (15-37); Albumin 3.3 g/dL (3.4-5.0); Alkaline Phosphatase 66 U/L (46-116); Anion Gap 2.3 mmol/L (3-11); BUN 7 mg/dL (7-18); Bilirubin, Total 0.6 mg/dL (0.2-1.0); CO2 34.7 mmol/L (21.0-32.0); CREATININE 1.2 mg/dL (0.70-1.30); Calcium 9.2 mg/dL (8.5-10.1); Chloride 102 mmol/L (98-107); Estimated GFR 58.89 (mL/min/1.73m2); Glucose 175 mg/dL (74-106); Potassium 4.6 mmol/L (3.5-5.1); Sodium 139 mmol/L (136-145); Total Protein 6.8 g/dL (6.4-8.2)
[2022-07-09 15:42] LABS: PSA, Ultrasensitive 3.5 ng/mL (<= 7.2)
== END 2022-07-08 12:39 | disposition home or self-care (01) ==
LOC: LBO 12:41
PROVIDERS: PCP Family Medicine; Visit Provider Internal Medicine
DX: C61 Malignant neoplasm of prostate (principal)
CPT/HCPCS: 36415; 80053; 84153; 85025

== ENCOUNTER 2022-11-05 02:29 | Outpatient (CLI) | payer MEDICARE, SELFPAY ==
[2022-11-05 14:06] LABS: Abs Immature Grans 0.01 10^3/uL (0.0-0.06); Absolute Basophil Count 0.05 10^3/uL (0.0-0.2); Absolute Eosinophil Count 0.12 10^3/uL (0.0-0.7); Absolute Lymphocyte Count 2.29 10^3/uL (1.2-3.4); Absolute Monocyte Count 0.68 10^3/uL (0.1-0.8); Absolute Neutrophil Count 5.06 10^3/uL (1.2-6.7); Basophils % 0.6; Eosinophils % 1.5; HCT 48.1 % (40.0-50.0); HGB 15.7 g/dL (13.5-17.5); Immature Grans % 0.1; Lymphocytes % 27.9; MCH 30.4 pg (27.0-33.0); MCHC 32.6 % (32.0-36.0); MCV 93 fL (80-95); MPV 12.4 fL (8.0-11.0); Monocytes % 8.3; Neutrophils % 61.6; Platelet Count 129 10^3/uL (130-400); RBC 5.17 10^6/uL (4.36-5.78); RDW 12.6 % (11.8-14.1); RDW-SD 43.5 fL; WBC 8.21 10^3/uL (4.4-10.8)
[2022-11-05 14:48] LABS: ALT 23 U/L (16-63); AST 24 U/L (15-37); Albumin 3.4 g/dL (3.4-5.0); Alkaline Phosphatase 70 U/L (46-116); Anion Gap 3.7 mmol/L (3-11); BUN 8 mg/dL (7-18); Bilirubin, Total 0.6 mg/dL (0.2-1.0); CO2 33.3 mmol/L (21.0-32.0); CREATININE 1.1 mg/dL (0.70-1.30); Calcium 9.2 mg/dL (8.5-10.1); Chloride 100 mmol/L (98-107); Estimated GFR 65.38 (mL/min/1.73m2); Glucose 153 mg/dL (74-106); Potassium 4.2 mmol/L (3.5-5.1); Sodium 137 mmol/L (136-145); Total Protein 6.7 g/dL (6.4-8.2)
[2022-11-06 17:04] LABS: PSA, Ultrasensitive 3.6 ng/mL (<= 7.2)
== END 2022-11-05 02:30 | disposition home or self-care (01) ==
PROVIDERS: PCP Family Medicine; Visit Provider Nurse Practitioner Adult Health
DX: C61 Malignant neoplasm of prostate (principal)
CPT/HCPCS: 36415; 80053; 84153; 85025

== ENCOUNTER 2023-03-04 02:01 | Outpatient (CLI) | payer MEDICARE, SELFPAY ==
[2023-03-04 11:18] LABS: Abs Immature Grans 0.01 10^3/uL (0.0-0.06); Absolute Basophil Count 0.06 10^3/uL (0.0-0.2); Absolute Eosinophil Count 0.13 10^3/uL (0.0-0.7); Absolute Lymphocyte Count 2.79 10^3/uL (1.2-3.4); Absolute Monocyte Count 0.75 10^3/uL (0.1-0.8); Absolute Neutrophil Count 5.03 10^3/uL (1.2-6.7); Basophils % 0.7; Eosinophils % 1.5; HCT 49.2 % (40.0-50.0); HGB 16.2 g/dL (13.5-17.5); Immature Grans % 0.1; Lymphocytes % 31.8; MCH 30.4 pg (27.0-33.0); MCHC 32.9 % (32.0-36.0); MCV 92 fL (80-95); MPV 12.1 fL (8.0-11.0); Monocytes % 8.6; Neutrophils % 57.3; Platelet Count 130 10^3/uL (130-400); RBC 5.33 10^6/uL (4.36-5.78); RDW-SD 43.9 fL; WBC 8.77 10^3/uL (4.4-10.8)
[2023-03-04 11:39] LABS: ALT 27 U/L (16-63); AST 29 U/L (15-37); Albumin 3.3 g/dL (3.4-5.0); Alkaline Phosphatase 71 U/L (46-116); Anion Gap 1.8 mmol/L (3-11); BUN 9 mg/dL (7-18); Bilirubin, Total 0.6 mg/dL (0.2-1.0); CO2 33.2 mmol/L (21.0-32.0); CREATININE 1.2 mg/dL (0.70-1.30); Calcium 8.8 mg/dL (8.5-10.1); Chloride 103 mmol/L (98-107); Estimated GFR 58.89 (mL/min/1.73m2); Glucose 95 mg/dL (74-106); Potassium 4.5 mmol/L (3.5-5.1); Sodium 138 mmol/L (136-145); Total Protein 6.8 g/dL (6.4-8.2)
[2023-03-06 09:33] LABS: PSA, Ultrasensitive 4.1 ng/mL (<= 7.2)
== END 2023-03-04 02:02 | disposition home or self-care (01) ==
PROVIDERS: PCP Family Medicine; Visit Provider Nurse Practitioner Adult Health
DX: C61 Malignant neoplasm of prostate (principal)
CPT/HCPCS: 36415; 80053; 84153; 85025

== ENCOUNTER 2023-06-24 01:53 | Outpatient (CLI) | payer MEDICARE, SELFPAY ==
[2023-06-24 13:55] LABS: Abs Immature Grans 0.01 10^3/uL (0.0-0.06); Absolute Basophil Count 0.05 10^3/uL (0.0-0.2); Absolute Lymphocyte Count 2.25 10^3/uL (1.2-3.4); Absolute Monocyte Count 0.59 10^3/uL (0.1-0.8); Absolute Neutrophil Count 4.76 10^3/uL (1.2-6.7); Basophils % 0.6; Eosinophils % 1.3; HGB 16.2 g/dL (13.5-17.5); Immature Grans % 0.1; MCH 30.5 pg (27.0-33.0); MCHC 33.1 % (32.0-36.0); MCV 92 fL (80-95); MPV 12.2 fL (8.0-11.0); Monocytes % 7.6; Neutrophils % 61.4; Platelet Count 119 10^3/uL (130-400); RBC 5.32 10^6/uL (4.36-5.78); RDW 13.1 % (11.8-14.1); RDW-SD 44.1 fL; WBC 7.76 10^3/uL (4.4-10.8)
[2023-06-24 14:31] LABS: ALT 26 U/L (16-63); AST 23 U/L (15-37); Albumin 3.3 g/dL (3.4-5.0); Alkaline Phosphatase 73 U/L (46-116); Anion Gap 5.4 mmol/L (3-11); BUN 10 mg/dL (7-18); Bilirubin, Total 0.6 mg/dL (0.2-1.0); CO2 31.6 mmol/L (21.0-32.0); CREATININE 1.1 mg/dL (0.70-1.30); Calcium 8.7 mg/dL (8.5-10.1); Chloride 100 mmol/L (98-107); Estimated GFR 64.97 (mL/min/1.73m2); Glucose 137 mg/dL (74-106); Sodium 137 mmol/L (136-145); Total Protein 6.9 g/dL (6.4-8.2)
== END 2023-06-24 01:54 | disposition home or self-care (01) ==
LOC: LBO 01:54
PROVIDERS: Nurse Practitioner Adult Health; PCP Family Medicine; Visit Provider Nurse Practitioner Family
DX: C61 Malignant neoplasm of prostate (principal)
CPT/HCPCS: 36415; 80053; 84153; 85025

== ENCOUNTER 2023-10-18 00:19 | Observation (INO) | payer MEDICARE, SELFPAY ==
--- NOTE | 2023-10-17 23:45 | RT.EKG_ITS ---
APPROVED REPORT Exam: Resting ECG Reason for Exam: lightheadedness Patient Location: E HR:53 bpm ECG Measurements Heart Rate 53 AXIS OR [id number] P [id number] QRSd 91 QRS -25 QT 389 T 39 QTc 365 Conclusion Atrial fibrillation...? atrial activity Inferior infarct, old...Q >35mS, II III aVF Agree with afib, LAD, no acute STEMI, no signif change from previous.
[2023-10-18] VITALS (51 sets, daily range): BP systolic 125–214; BP diastolic 48–111; PULSE 44–90; RESP 11–25; TEMP 36.4–36.6; O2SAT 92–99
--- NOTE | 2023-10-18 00:34 | W.ED.GENAD ---
HPI General Mode of arrival: EMS. Date/Time Provider Initiated Documentation: 10/18/23 00:34. Limitations to Documentation: physical limitation (Poor memory) and other (The patient is a poor historian who, by his own admission, she states his memory is not what it used to be.). Information obtained by: patient, EMS, RN notes reviewed and old records reviewed. HPI Narrative: The patient is a 88-year-old male with history of cardiac stent placement x 2 the last was in 2006 who does not take nitroglycerin on a regular basis. He presents today with intermittent dizziness and and intermittent substernal chest heaviness. He has had 3 episodes of chest heaviness each were relieved by 1 sublingual nitroglycerin. Today he had an episode that occurred while playing [employer]. He cannot recall the symptoms she had prior to his previous cardiac catheterization. He also is complaining of intermittent dizziness and has difficulty describing the sensation. He does not have the sensation of movement and does not feel as though he is going to pass out. He describes it as lightheadedness. He tells me that he awoke in the middle of the night approximately 24 hours ago because he heard a bang and thought that someone was breaking into his house. At that time he did have chest pain relieved by 1 sublingual nitroglycerin and felt lightheaded and anxious. He did not call 911 and eventually went back to sleep after several hours. He describes feeling very anxious when he woke up. There were no signs of home invasion. He states that just prior to arrival he awoke again feeling anxious and concerned that somebody may have broken into his house. He denied any chest pain or shortness of breath with this episode. He does endorse anxiety. It is not clear to me why he came in today when his symptoms were worse the night before. Currently he is not having any chest pain. According to his old records he did have chest pain prior to his stenting. He also has a history of a TIA and atrial fibrillation and has been on clopidogrel since his TIA. He has not had a repeat catheterization since 2006 but believes he may have had an echocardiogram and/or stress testing in the interim. Related Data Home Medications Medication Instructions Recorded Confirmed lisinopril 10 mg tablet 1 tab PO DAILY 12/10/12 10/18/23 metoprolol tartrate 50 mg tablet 50 mg PO BID 12/10/12 10/18/23 omeprazole 20 mg capsule,delayed 20 mg PO DAILY@0730 12/10/12 10/18/23 release clopidogrel 75 mg tablet (Plavix) 75 mg PO DAILY #30 tabs 12/12/12 10/18/23 aspirin 81 mg tablet,delayed 81 mg PO DAILY 04/19/22 10/18/23 release isosorbide mononitrate 30 mg 30 mg PO DAILY #30 tabs 10/18/23 tablet,extended release 24 hr nitroglycerin 0.4 mg sublingual 0.4 mg PO Q5M PRN #30 tabs 10/18/23 tablet (Nitrostat) simvastatin 20 mg tablet 20 mg PO ONCE 10/18/23 10/18/23 Previous Rx's Medication Instructions Recorded clopidogrel 75 mg tablet (Plavix) 75 mg PO DAILY #30 tabs 12/12/12 isosorbide mononitrate 30 mg 30 mg PO DAILY #30 tabs 10/18/23 tablet,extended release 24 hr nitroglycerin 0.4 mg sublingual 0.4 mg PO Q5M PRN #30 tabs 10/18/23 tablet (Nitrostat) Allergies Allergy/AdvReac Type Severity Reaction Status Date / Time No Known Allergies Allergy Unverified 10/18/23 00:10 General Stated Complaint: Dizzy/Sync MILLIE: 3 Review of Systems Narrative: see hpi Exam Narrative Exam Narrative: The patient is well-developed well-nourished male who is alert and oriented in no acute distress. He does appear slightly anxious. He is mildly hypertensive. He is in atrial fibrillation with well-controlled rate. He is normotensive, afebrile with a normal room air O2 sat. His GCS is 15. He is alert and oriented x 4. Const General: cooperative, healthy appearing, comfortable, no acute distress, well developed, well groomed and well hydrated Nutritional Appearance: average body habitus and well nourished Orientation: alert, awake and oriented x3 HENVT Head: normal to inspection, normocephalic and atraumatic Ears: hearing grossly normal bilaterally and external ears normal General nose exam: external nose normal, nares normal and no nasal discharge Face and sinus: normal facial exam, sinuses nontender and face symmetric Mouth: oral mucosae normal, lip normal, tongue normal, oropharynx normal, moist mucous membranes and other (Normal phonation. The patient is handling secretions.) Throat: posterior oropharynx normal and uvula midline Eyes General: appearance normal, both eyes and all related structures Eyelids: eyelids normal Conjunctivae: conjunctivae normal Sclera: sclerae normal Cornea: corneas normal Pupils: PERRL EOM: EOM intact bilaterally and No nystagmus Neck Neck: normal visual inspection, full ROM, no lymphadenopathy, no meningeal signs, trachea midline and supple Lymphatic: no lymphadenopathy noted Chest Chest: normal inspection of the chest Resp Effort & Inspection: normal respiratory effort, able to speak in complete sentences, no audible wheezes, no nasal flaring, no respiratory distress, no retractions, no stridor, not tachypneic, no tracheal deviation, no use of accessory muscles, No prolonged expiratory phase and other (Normal inspiratory to expiratory ratio.) Auscultation: clear to auscultation bilaterally, rales (He does have bibasilar Rales greater on the right than on the left.), no rhonchi, no wheezes and no rubs Tactile Fremitus: tactile fremitus absent Cardio Jugular venous pressure: no JVD Palpation: normal PMI Rate: bradycardic Rhythm: abnormal rhythm irregularly irregular Heart Sounds: S1 normal, S2 normal, no gallops, no murmurs and no rubs Other: The patient does have mild symmetric pedal edema no cyanosis or clubbing. I cannot appreciate any JVD. PMI is not displaced. GI Inspection: normal to inspection and non-distended Palpation: soft, no hepatosplenomegaly, no guarding and nontender Percussion: normal to percussion Auscultation: normal bowel sounds General: No CVA tenderness Back/Spine/Pelvis Back: no CVA tenderness and No back tenderness Cervical Spine: normal cervical lordosis, cervical ROM normal, No cervical muscular tenderness, No pain with cervical ROM, No cervical spinal tenderness and No step off deformity Thoracic/Lumbar Spine: thoracic and lumbar spine normal to inspection, No thoracic spinal tenderness and No lumbar spinal tenderness Pelvis: no pain with anterior-posterior compression and no pain with lateral compression Skin General skin exam: no rashes or lesions noted, turgor normal, no petechiae, no purpura and other (Skin is normal for ethnicity.) Lesions: no lesions Rashes: no rashes Trauma: no lacerations or abrasions Neuro General: patient alert, patient awake, patient oriented x3, moves all extremities, no meningeal signs, no focal motor deficits and CN's II-XI intact bilaterally Cranial Nerves: CN's II-XI intact bilaterally, PERRL, accommodation normal, EOM intact bilaterally, no nystagmus, facial strength normal, tongue midline, hearing normal and no nystagmus Cognition: normal cognition Speech: speech normal Gait: normal gait Motor: muscle tone normal throughout and strength 5/5 throughout Sensory Exam: no sensory deficits noted Extrem General: normal to inspection, full ROM, capillary refill normal, no clubbing, cyanosis or edema and no calf tenderness Other: No Homans signs or cords. Trace bilateral symmetric pedal edema. Psych Appearance: grossly normal Affect: normal affect Attitude: cooperative Thought Process: normal Thought Content: normal Insight: insight good Judgment: judgment good Other: The patient appears to have capacity make medical decisions. Course 3:50 AM I have reviewed the patient's blood work and EKG. He has evidence of congestive heart failure. I have written for Lasix and IV magnesium. I have discussed admission with the patient who voices understanding and agreement. I have paged the hospitalist. 3:59 AM I have spoken with Dr. Foote the hospitalist who agreed to admit him to observation. He was asked to write admission orders which I will do. Consultations Consultation #1: Hospitalist Time: 03:45 Vital Signs Vital signs: Vital Signs Pulse 63 10/18/23 00:01 Respiratory Rate 18 10/18/23 00:01 Blood Pressure 168/104 H 10/18/23 00:01 Pulse Oximetry 96 10/18/23 00:01 Pulse 63 10/18/23 00:01 Respiratory Rate 18 10/18/23 00:07 Respiratory Effort Normal 10/18/23 00:07 Respiratory Depth Normal 10/18/23 00:07 Respiratory Pattern Normal 10/18/23 00:07 Blood Pressure 168/104 H 10/18/23 00:01 Pulse Oximetry 96 10/18/23 00:01 Oxygen Delivery Method Room Air 10/18/23 00:01 Oxygen Flow Rate 0 10/18/23 00:01 Lab/Test Results Lab/Test Results: Initial BNP elevated initial troponin negative mild hypomagnesemia Medical Decision Making This is an 88-year-old male who presents after being woken up in the middle of the night 2 nights in a row. On the first night he experienced chest pain which was relieved by nitro glycerin. He has had several episodes of chest pain relieved by 1 sublingual nitroglycerin. He has a distant history of coronary artery disease and is on Plavix for atrial fibrillation after he had a TIA. He had a second episode today which woke him from sleep and was associated with anxiety but no shortness of breath. He also endorses lightheadedness but has difficulty describing that symptom any further. It does not sound vertiginous or presyncopal. I am concerned about his chest pain since he does not usually have chest pain and does not take nitroglycerin on a regular basis. To me this is a change in his chest pain pattern. His last cath was in 2006, 14 years ago. He did have an LAD stent placed and although his EKG shows A-fib with a controlled rate and no evidence of ischemic changes he should be admitted for further monitoring and serial troponins. Since it is the weekend echocardiogram is not available. My plan is to obtain blood work including cardiac enzymes proBNP electrolytes renal function and liver functions. We will check for anemia with a CBC. I will obtain a chest x-ray. Since he has not been experiencing any chest pain since earlier today when he experienced it while at rest playing [employer] I will give him aspirin and he will likely be admitted to the hospitalist service. If he has a positive troponin or clinical deterioration I will consult cardiology at [facility]. I am concerned about him waking up in the middle of the night and the evidence of CHF given that he has rales. He may have experienced paroxysmal nocturnal dyspnea as the cause of his waking up. Differential Diagnosis Differential Diagnosis: Chest pain, NV, ACS, unstable angina, CHF, flash pulmonary edema Medical Records Medical records reviewed: Yes I reviewed the patient's medical records. Imaging Data Radiologic Study: Attestation: I personally reviewed and interpreted this imaging study as follows: Imaging: X-Ray (Chest x-ray) My impression: My impression was diffuse increased markings consistent with mild congestive heart failure. This interpretation was made prior to the read impression. Radiologist's impression: V rad impression:No acute findings. Lab Data Lab results reviewed: Yes I reviewed the patient's lab results. Lab results narrative: Negative initial troponin, elevated D-dimer elevated proBNP. Slightly elevated hematocrit. ECG Data Attestation: I personally reviewed and interpreted this ECG (s) as follows: Prior ECG tracings: available for review Quality:[facility] Related Social Needs: No Data to Display Critical Care Time Critical Care Time Total Critical Care Time: 42 Attestation: This includes time at the bedside, including frequent reassessments and updates, review and interpretation of EKG with comparison to previous. Review of labs and interpretation of chest x-ray. Review of old records and consultation with the hospitalist for admission. [facility] All Active Problems Discharge planning issues (Acute) Erythrocytosis (Acute) Anxiety (Chronic) Light-headedness (Acute) Hypomagnesemia (Acute) Congestive heart failure (Chronic) Coronary artery disease (Chronic) Angina at rest (Acute) Atypical chest pain (Acute 09/01/14) Coronary artery disease (Chronic) a. S/p NV 2001 presenting with chest pain b. S/p NV 2005 presenting with exertional dyspnea c. S/p LAD stenting d. Negative stress echo 2009 Hypertension (Chronic) Hyperlipidemia (Chronic) Thrombocytopenia (Chronic) GERD (gastroesophageal reflux disease) (Chronic) Lower urinary tract symptoms (LUTS) (Chronic) h/o tia (Chronic) a. transient speech deficit b. Chronic Plavix since Benign head tremor (Chronic) Acne rosacea (Chronic) Medical History H/O prostate cancer a. [id number] january score 9 b. S/p radiation treatment and androgen deprivation therapy A-fib Hiatal hernia Gross hematuria Surgical History History of back surgery Hx of heart artery stent [id number] F/U with PCP at [facility] H/O hernia repair Family History Brother Alcohol use disorder Father , age 71 Stroke Social History Smoking/Tobacco Use Status: Former Tobacco Use Quit Date: 09/22/94 Smoking risk assessment performed?: Yes Alcohol Intake: former Drug use: Never Substance use type: does not use Housing: house Do you feel safe at home: Yes Do you feel safe in your relationship?: Yes Additional Social history: Lives with Kierra in [facility]. Retired from [employer]. Discharge Plan Disposition Patient Disposition: Admit to [facility] Discharge Details Clinical Impression: Angina at rest, Coronary artery disease, H/O prostate cancer, Congestive heart failure, Hypomagnesemia, Light-headedness, Anxiety Admit Date/Time: 10/18/23 04:10 Admit Provider: Rosendo Terry Attending Provider: Rosendo Terry Primary Care Provider: Kit Metcalf ED Provider: Diane London Discharge Data Discharge Date/Time-TO BE ENTERED AT DEPARTURE: 10/18/23 05:08 Discharge Physician: Diane London
[2023-10-18 01:01] LABS: Abs Immature Grans 0.02 10^3/uL (0.0-0.06); Absolute Basophil Count 0.07 10^3/uL (0.0-0.2); Absolute Eosinophil Count 0.12 10^3/uL (0.0-0.7); Absolute Lymphocyte Count 2.42 10^3/uL (1.2-3.4); Absolute Monocyte Count 0.61 10^3/uL (0.1-0.8); Absolute Neutrophil Count 4.74 10^3/uL (1.2-6.7); Basophils % 0.9; Eosinophils % 1.5; HCT 50.1 % (40.0-50.0); HGB 16.9 g/dL (13.5-17.5); Immature Grans % 0.3; Lymphocytes % 30.3; MCH 30.6 pg (27.0-33.0); MCHC 33.7 % (32.0-36.0); MCV 91 fL (80-95); MPV 12.6 fL (8.0-11.0); Monocytes % 7.6; Neutrophils % 59.4; Platelet Count 123 10^3/uL (130-400); RBC 5.52 10^6/uL (4.36-5.78); RDW 12.8 % (11.8-14.1); RDW-SD 43.1 fL; WBC 7.98 10^3/uL (4.4-10.8)
[2023-10-18] MEDS: Normal Saline 1,000 ML 150 ML IV (01:04)
--- NOTE | 2023-10-18 01:15 | DI.RAD_ITS ---
Exam(s) XR CHEST 2V PA LATERAL EXAM: XR CHEST 2V PA LATERAL CLINICAL HISTORY: lightheadedness TECHNIQUE: 2D digital imaging was performed of the chest. Two images were obtained. PA and lateral views were obtained. COMPARISON: CR CHEST 2 VIEWS PA,LAT from 09/01/2014 FINDINGS: MEDIASTINUM: Normal. HEART: Normal. PULMONARY VASCULATURE: Normal. LUNGS: The lungs are hyperinflated with flattened diaphragms consistent with underlying COPD. No foc al consolidating infiltrates are seen. PLEURAL SPACE: No pleural effusion or pneumothorax. BONE:Within normal limits for the patient's age. OTHER FINDINGS:Normal. IMPRESSION: No acute pulmonary findings. DATA REPOSITORY: RADIATION DOSE DELIVERED:
[2023-10-18 01:20] LABS: ALT 25 U/L (16-63); AST 28 U/L (15-37); Albumin 3.4 g/dL (3.4-5.0); Alkaline Phosphatase 66 U/L (46-116); Anion Gap 7.8 mmol/L (3-11); BUN 10 mg/dL (7-18); Bilirubin, Total 0.6 mg/dL (0.2-1.0); CO2 31.2 mmol/L (21.0-32.0); CREATININE 1.1 mg/dL (0.70-1.30); Calcium 9.4 mg/dL (8.5-10.1); Chloride 99 mmol/L (98-107); Estimated GFR 64.97 (mL/min/1.73m2); Glucose 119 mg/dL (74-106); Magnesium 1.7 mg/dL (1.8-2.4); Potassium 4.3 mmol/L (3.5-5.1); Sodium 138 mmol/L (136-145); Total Protein 7.1 g/dL (6.4-8.2); Troponin I < 50 ng/L (< or =60)
[2023-10-18 01:42] LABS: INR 1.2 (0.9-1.1)
[2023-10-18 01:53] LABS: NT-proBNP 1190 pg/mL (<300)
[2023-10-18] MEDS: Furosemide 20 MG/2 ML VIAL IVP (03:48)
[2023-10-18] MEDS: MAGNESIUM SULFATE 1 GM/100 ML BAG IVPB (03:48)
[2023-10-18 05:06] LABS: Troponin I < 50 ng/L (< or =60)
--- NOTE | 2023-10-18 05:37 | DI.VRAD_ITS ---
PROCEDURE INFORMATION: Exam: XR Chest Exam date and time: 10/18/2023 3:22 AM Age: 88 years old Clinical indication: Other: Lightheadedness TECHNIQUE: Imaging protocol: Radiologic exam of the chest. Views: 2 views. COMPARISON: CT CHEST/ABD/PEL W 12/05/2021 10:28 AM FINDINGS: Lungs: Lungs are slightly hyperexpanded. No airspace consolidation is present. A few scattered coarse lung markings are present throughout. Pleural spaces: Unremarkable. No pleural effusion. No pneumothorax. Heart/Mediastinum: Heart size is grossly normal. The aorta is slightly tortuous and calcific. Bones/joints: No acute bony abnormalities identified. IMPRESSION: No acute findings. Dictated and Authenticated by: Alonzo Brasher MD. Ordering:CORINNE Contreras MD
--- NOTE | 2023-10-18 06:01 | W.PM.HP.N ---
Date of service: 10/18/23 Time of Service: 06:01 Assessment and Plan Assessment and plan (1) Angina at rest: Status: Acute Assessment and plan: Having increase in what is consistent with angina, relieved by NTG. Negative troponins and non-ischemic EKG. Will try adding isosorbide. Consider repeat stress testing if this continues, but this can be done as outpatient. Tele monitoring while inpatient (2) Coronary artery disease: Status: Chronic Assessment and plan: He is on DAPT due to CAD and TIA. His statin was deintensified, will resume rosuvastatin for goal LDL <70. Concern for CHF in ED with elevated BNaP, but not fluid overloaded now (she did get 20mg furosemide) and initial CXR was read as normal. LVEF normal 04/12. Consider repeating. (3) A-fib: Assessment and plan: We discussed indication for anticoagulation. He hasn't had recent hematuria so especially given his h/o TIA I think worth trialing back on apixaban. I would use this with clopidogrel based on recent research with better outcomes than with apixaban/ASA. Will defer to PCP. (4) Thrombocytopenia: Status: Chronic Assessment and plan: This is chronic. His fibrosis-4 score is 3.96 so compensated cirrhosis is in the differential, though it may also be a primary hematologic issue. Defer to outpatient, consider elastography. (5) GERD (gastroesophageal reflux disease): Status: Chronic Assessment and plan: continue PPI. could change to pantoprazole to avoid clopidogrel interaction. (6) Erythrocytosis: Status: Acute Assessment and plan: This is new. He was previously androgen deprived but this normalized. He denies HUMBERTO symptoms. Work up as outpatient (7) Discharge planning issues: Status: Acute History of Present Illness History of Present Illness Chief Complaint: chest pressure Narrative: 88 yo M with history of CAD with h/o stenting last in 2005, history of remote TIA, and atrial fibrillation who presented to the emergency room after a third episode of chest pressure that was responsive to nitroglycerine in the previous 24 hours. His first episode was 3:30 am on 10/17 when he woke to a loud noise and was startled. He had some chest tightness and lightheadedness, but attributed it to anxiety and went back to bed. Later in the afternoon he was playing [employer]atz[employer] and he had similar chest tightness. Mid chest, substernal, pressure, no radiation. He had associated nausea and lightheadedness but no diaphoresis, SOB, or palpliations. He tried a Tums and this didn't work, then tried a nitro and the pressure when away after a few minutes. Later that night after lying down in bed he had another similar episode, about 10:30pm. Again he took NTG and the pain subsided after a total of about 30 minutes. At that point he decided to come into the hospital. Prior to yesterday, he had used his nitroglycerin twice in the past few weeks. Prior to that he used it once in the summer, but doesn't remember using it for months to years before that. Of note, he reports he was on apixaban for atrial fibrillation until he had an episode of gross hematuria that was felt related to his prostate after a negative work up including cystoscopy in 2021. Also of note he was changed from rosuvastatin to simvastatin in the past year. He states he didn't tolerate atorvastatin, and he could take crestor but it got too expensive and he couldn't take the generic. Review of Systems Constitutional Constitutional: Denies anorexia, Denies chills, Denies fever(s), Denies headache(s), Denies poor appetite, Denies stops breathing during sleep and Denies weakness Eyes Eyes: Denies change in vision and Denies irritation ENT Ears, Nose, Mouth, and Throat: Denies dizziness, Denies headache(s), Denies nasal congestion, Denies nasal discharge and Denies sore throat Cardiovascular Cardiovascular: Denies chest pain with activity, Denies radiating jaw, neck or arm pain and Denies orthopnea Respiratory Respiratory: Denies cough, Denies excessive phlegm production and Denies wheezing Gastrointestinal Gastrointestinal: Denies abdominal pain, Denies melena, Denies hematochezia, Denies constipation, Denies heartburn, Denies diarrhea and Denies vomiting Genitourinary Genitourinary: Denies hematuria, Denies dysuria and Denies urinary incontinence Comments: no recent hematuria Musculoskeletal Musculoskeletal: Denies arthralgias and Denies joint swelling Integumentary/Breasts Skin/Breast: Denies rash and Denies skin ulcer Neurologic Neurologic: Denies confusion, Denies dizziness, Denies headache(s), Denies sensory deficit and Denies weakness Psychiatric Psychiatric: Denies confusion and Denies mood swings Hematologic/Lymphatic Hematologic/Lymphatic: Denies easy bleeding Allergic/Immunologic Allergic/Immunologic: Denies wheezing PFSH All Active Problems (Updated 10/18/23 @ 07:59 by Rosendo Terry) Discharge planning issues (Acute) Erythrocytosis (Acute) Anxiety (Chronic) Light-headedness (Acute) Hypomagnesemia (Acute) Congestive heart failure (Chronic) Coronary artery disease (Chronic) Angina at rest (Acute) Atypical chest pain (Acute 09/01/14) Coronary artery disease (Chronic) a. S/p RI 2001 presenting with chest pain b. S/p RI 2005 presenting with exertional dyspnea c. S/p LAD stenting d. Negative stress echo 2009 Hypertension (Chronic) Hyperlipidemia (Chronic) Thrombocytopenia (Chronic) GERD (gastroesophageal reflux disease) (Chronic) Lower urinary tract symptoms (LUTS) (Chronic) h/o tia (Chronic) a. transient speech deficit b. Chronic Plavix since Benign head tremor (Chronic) Acne rosacea (Chronic) Medical History (Updated 10/18/23 @ 07:59 by Rosendo Terry) H/O prostate cancer a. T2N0M0 january score 9 b. S/p radiation treatment and androgen deprivation therapy A-fib Hiatal hernia Gross hematuria Surgical History (Updated 10/18/23 @ 06:58 by Rosendo Terry) History of back surgery Hx of heart artery stent [id number] F/U with PCP at [facility] H/O hernia repair Family History Brother Alcohol use disorder Father , age 71 Stroke Social History (Updated 10/18/23 @ 06:58 by Rosendo Terry) Smoking/Tobacco Use Status: Former Tobacco Use Quit Date: 09/22/94 Smoking risk assessment performed?: Yes Alcohol Intake: former Drug use: Never Substance use type: does not use Housing: house Do you feel safe at home: Yes Do you feel safe in your relationship?: Yes Additional Social history: Lives with Kierra in [facility]. Retired from [employer]. Meds Allergies and Home Medications Allergies Allergy/AdvReac Type Severity Reaction Status Date / Time No Known Allergies Allergy Unverified 10/18/23 00:10 Home Medications Medication Instructions Recorded Confirmed Type lisinopril 10 mg tablet 1 tab PO DAILY 12/10/12 10/18/23 History metoprolol tartrate 50 mg tablet 50 mg PO BID 12/10/12 10/18/23 History omeprazole 20 mg capsule,delayed 20 mg PO DAILY@0730 12/10/12 10/18/23 History release clopidogrel 75 mg tablet (Plavix) 75 mg PO DAILY #30 tabs 12/12/12 10/18/23 Rx nitroglycerin 0.4 mg sublingual 1 tab PO PRN PRN 09/01/14 10/18/23 History tablet (Nitrostat) aspirin 81 mg tablet,delayed 81 mg PO DAILY 04/19/22 10/18/23 History release simvastatin 20 mg tablet 20 mg PO ONCE 10/18/23 10/18/23 History Exam Narrative Exam Narrative: GEN: Alert and oriented x 4, pleasant and cooperative, gives linear history though he has some word finding difficulty at time. No acute distress at rest. HEENT: Head atraumatic. Conjunctiva clear, no icterus. PEERL, EOMI. no rhinorrhea. MMM, OP benign. Neck is supple with no masses or lymphadenopathy, trachea midline LUNGS: CTAB except slight crackle right bse. Normal effort, speaking in full sentences CV: irregularly irregular with no murmurs, gallops, or rubs. ABD: +BS, soft, NT/ND EXT: no cyanosis, clubbing. Trace ankle edema bilaterally. Not tender to palpation MSK: No joint redness or swelling NEURO: CN 2-12 grossly intact. Normal movement of 4 extremities. Normal speech and coordination. no tremor. SKIN: No rashes or open wounds. PSYCH: normal mood and affect, normal thought process. Results Imaging Chest x-ray: report reviewed (no acute disease) and image reviewed EKG: report reviewed and image reviewed (atrial fibrillation, no ischemic ST-T change, no change from previous) Labs 10/18/23 00:20 10/18/23 00:20 Labs: Laboratory Results - last 24 hr 10/18/23 10/18/23 00:20 03:50 WBC 7.98 RBC 5.52 Hgb 16.9 Hct 50.1 H MCV 91 MCH 30.6 MCHC 33.7 RDW 12.8 Plt Count 123 L MPV 12.6 H Immature Gran % 0.3 Neutrophils % 59.4 Lymphocytes % 30.3 Monocytes % 7.6 Eosinophils % 1.5 Basophils % 0.9 Nucleated RBC % 0.0 Absolute Neutrophils 4.74 Absolute Lymphocytes 2.42 Absolute Monocytes 0.61 Absolute Eosinophils 0.12 Absolute Basophils 0.07 PT 12.0 H INR 1.2 H Sodium 138 Potassium 4.3 Chloride 99 Carbon Dioxide 31.2 Anion Gap 7.8 BUN 10 Creatinine 1.1 Est GFR (CKD-EPI 2020) 64.97 Glucose 119 H Calcium 9.4 Magnesium 1.7 L Total Bilirubin 0.6 AST 28 ALT 25 Alkaline Phosphatase 66 Troponin I < 50 < 50 NT-Pro-B Natriuret Pep 1190 H Total Protein 7.1 Albumin 3.4 Last Vital Signs Temp 36.5 C 10/18/23 05:16 Pulse 58 L 10/18/23 05:16 Resp 18 10/18/23 05:16 BP 146/81 H 10/18/23 05:16 Pulse Ox 96 10/18/23 05:16 Time Spent Time spent with Patient: 55-74 minutes Time was spent: preparing to see the patient(eg.review tests), obtaining and/or reviewing separately otained hiistory, ordering medications,tests, procedures, referring, communicating with other health body care manager, indepentently interpreting results and counseling the patient
[2023-10-18 07:12] LABS: Calculated LDL 77 mg/dL (<100); Cholesterol 140 mg/dL (<200); HDL Cholesterol 45 mg/dL (40-60); Triglyceride 90 mg/dL (<150)
--- NOTE | 2023-10-18 08:37 | PDOC.CMIN ---
Date of service: 10/18/23 Time of Service: 08:37 Care Management Initial Assmt Initial Assessment REASON FOR HOSPITALIZATION:: angina PREVIOUS FUNCTIONAL STATUS/SOCIAL/FAMILY SUPPORTS:: Joel lives in [place] with his Kierra. They had 4 children but one is . All of the children live locally and are close and supportive. Joel is retired but informed CM that he worked at [employer] for 25 years and has been retired for 25 years. He is independent at baseline and does not receive any community services. CURRENT FUNCTIONAL STATUS:: Joel was sitting up in a chair visiting with his and daughter when CM met with him. He was polite but not very talkative.CM was informed by the family that Joel will be discharged today. They denied the need for any services at home. ADVANCE DIRECTIVES:: none Has patient been provided with info about the portal/API?: Yes Did the patient sign up for the portal?: No CODE STATUS:: Full Code INSURANCE COVERAGE / FINANCIAL ISSUES:: Medicare [employer] [facility] Medicare Supplement PRIMARY CARE PHYSICIAN:: Kit Metcalf POTENTIAL DISCHARGE NEEDS:: follow up with community providers PATIENT/FAMILY EDUCATION NEEDS:: Review of discharge instructions, activity, limitations, follow up plan, discuss Ask Me Three TRANSPORTATION:: via private vehicle with family PLAN:: Joel will be discharged home with no new services. He will follow up with his community providers and plan of care and transport with family. CM will continue to support Joel and his discharge planning needs. [facility] All Active Problems Discharge planning issues (Acute) Erythrocytosis (Acute) Anxiety (Chronic) Light-headedness (Acute) Hypomagnesemia (Acute) Congestive heart failure (Chronic) Coronary artery disease (Chronic) Angina at rest (Acute) Atypical chest pain (Acute 09/01/14) Coronary artery disease (Chronic) a. S/p TX 2001 presenting with chest pain b. S/p TX 2005 presenting with exertional dyspnea c. S/p LAD stenting d. Negative stress echo 2009 Hypertension (Chronic) Hyperlipidemia (Chronic) Thrombocytopenia (Chronic) GERD (gastroesophageal reflux disease) (Chronic) Lower urinary tract symptoms (LUTS) (Chronic) h/o tia (Chronic) a. transient speech deficit b. Chronic Plavix since Benign head tremor (Chronic) Acne rosacea (Chronic) Medical History H/O prostate cancer a. T2N0M0 january score 9 b. S/p radiation treatment and androgen deprivation therapy A-fib Hiatal hernia Gross hematuria Surgical History History of back surgery Hx of heart artery stent [id number] F/U with PCP at [facility] H/O hernia repair Family History Brother Alcohol use disorder Father , age 71 Stroke Social History Smoking/Tobacco Use Status: Former Tobacco Use Quit Date: 09/22/94 Smoking risk assessment performed?: Yes Alcohol Intake: former Drug use: Never Substance use type: does not use Housing: house Do you feel safe at home: Yes Do you feel safe in your relationship?: Yes Additional Social history: Lives with Kierra in [facility]. Retired from [employer] SDOH(Care Management) Screening Will the Patient Participate in the Screening?: Unable to obtain
--- NOTE | 2023-10-18 09:22 | NUR.NOTE ---
Nursing Note:Pt was pronounced at 0703 by RN Lamont Tolentino & LILY Herring. MD [place] notified at 0708. Family called at 07 NEDS notified at 729: Declined status home per : Татьяна VEGAS
[2023-10-18] MEDS: Magnesium Oxide 400 MG TAB PO (09:33)
[2023-10-18] MEDS: Clopidogrel 75 MG TAB PO (09:33)
[2023-10-18] MEDS: Omeprazole 20 MG CAPCR PO (09:34)
[2023-10-18] MEDS: Isosorbide Mononitrate 30 MG TABCR PO (09:36)
[2023-10-18] MEDS: Metoprolol 50 MG TAB PO (09:38)
[2023-10-18] MEDS: Aspirin E.C. 81 MG TABEC PO (09:38)
[2023-10-18] MEDS: Lisinopril 10 MG TAB PO (09:38)
[2023-10-18] MEDS: Normal Saline Flush 10 ML SYR IVP (09:40)
[2023-10-18] MEDS: Enoxaparin 40 MG/0.4 ML SYR SC (09:41)
--- NOTE | 2023-10-18 13:57 | DSE_ITS ---
Date of service: 10/18/23 Time of Service: 13:57 DS: Diagnosis Discharge Diagnosis (1) Angina at rest: Status: Acute (2) Coronary artery disease: Status: Chronic (3) A-fib: (4) Thrombocytopenia: Status: Chronic (5) GERD (gastroesophageal reflux disease): Status: Chronic (6) Erythrocytosis: Status: Acute Discharge Plan Disposition Patient Disposition: Home Condition: Improving Discharge Details Reason For Visit: CHF, angina, CAD, lightheadedness, anxiety Admit Date/Time: 10/18/23 04:10 Admit Provider: Rosendo Terry Attending Provider: Rosendo Terry Primary Care Provider: Kit Metcalf Hospital Course Hospital Course: See admission H&P and ER note for details. In summary this 88-year-old male with a history of coronary artery disease with prior coronary stenting last performed 2005 also history remote TIA chronic atrial fibrillation has been on dual antiplatelet therapy with aspirin and Plavix presented emergency department with recurrent episodes of chest pressure. He presented after his third episode of chest pressure that responded to nitroglycerin. First 1 was associated with a sudden awakening in the spa associate hours at 3:30 AM on 10/17/2023 when he heard a loud noise that startled him this was associated with some chest tightness and lightheadedness that he attributed to anxiety and then went back to bed and it subsided. Later in the afternoon on 10/17/2023 he was playing [employer] with his when he had similar chest tightness but did not tell her about it he took a nitroglycerin and it was promptly relieved. Third episode occurred on the evening of 10/17/2023 around 10:30 PM mid chest pressure substernal with no radiation associate with some lightheadedness but no diaphoresis or shortness of breath or palpitations. Initially thought was indigestion and tried Tums that did not work so he tried nitroglycerin that is when the chest pressure went away. Patient's not had a recent stress test or echocardiogram has not followed with any edge bander operator locally. Workup included EKG and serial troponin levels. Troponin I level was checked twice and negative x 2 sets. EKG on admission showed a controlled atrial fibrillation rate of 53 bpm no acute ischemic changes. As it was the weekend we cannot do a stress MPI and an echocardiogram. I did a bedside POCUS exam of his heart and did not see any wall motion abnormalities. He does have a trace mitral regurgitation and some mild tricuspid regurgitation. Chest x-ray on admission showed no acute pulmonary findings. Laboratory studies were derek rkable for borderline polycythemia with an increased hematocrit of 50% hemoglobin 16.9 g but this appears to be chronic finding. He has a chronic thrombocytopenia with a platelet count of 123,000. Chemistry panel showed mildly low magnesium of 1.7 glucose 119 rest electrolytes and LFTs were normal his proBNP was elevated at 1190. ED provider thought he was in some mild congestive failure and gave him a dose of Lasix 20 mg IV push. This was not continued by the admitting hospitalist. Department bedside POCUS I did perform mitral valve inflow velocity and mitral annular velocities although these are less reliable in atrial fibrillation. Clinically did not seem to be in congestive heart failure when I saw him. As the patient was feeling much better now and back to his baseline I thought it reasonable to discharge him on a long- acting nitrate such as Imdur and schedule him for an outpatient stress test and echocardiogram. Will make referral to Dr. Barragan, cardiology here at [facility] for follow up (as well as to his PCP Dr. Kit Metcalf). I also renewed his nitroglycerin tablets as they were not recently filled. I explained to the patient and his and his daughter signs and symptoms of an KS and told him that if he has recurrent angina despite the addition of Imdur that he should present to the emergency department or call 911. Home Meds and New Rx's Prescriptions: New isosorbide mononitrate 30 mg tablet extended release 24 hr 30 mg PO DAILY Qty: 30 0RF Continued lisinopril 10 MG tablet 1 tab PO DAILY metoprolol tartrate 50 MG tablet 50 mg PO BID omeprazole 20 MG capsule,delayed release(DR/EC) 20 mg PO DAILY@0730 clopidogrel [Plavix] 75 MG tablet 75 mg PO DAILY Qty: 30 0RF aspirin 81 mg Tablet,Delayed Release (Dr/Ec) 81 mg PO DAILY simvastatin 20 mg tablet 20 mg PO ONCE Patient Comments: TAKE ONE TABLET BY MOUTH EVERY DAY IN THE EVENING Changed nitroglycerin [Nitrostat] 0.4 MG tablet, sublingual 0.4 mg PO Q5M PRNQty: 30 0RF Rx Instructions: 0.4 mg tablet under the tongue at onset of chest pain, repeat q5 minutes until relief or up to 3 tablets Discharge Instructions Instructions: Isosorbide Mononitrate (By mouth), Angina (DC), Acute Coronary Syndrome (DC) Additional Instructions: You were admitted overnight due to symptoms of angina. You have had a couple of angina spells over past couple days. You did not have a myocardial infarction. We ruled this out w/ serial normal troponin I levels and EKG's. You were started on a long acting nitrate called Imdur or isosorbide mononitrate. This helps to dilate the coronary arteries and prevent angina. Because we know that you have coronary artery disease w/ prior coronary stents, you should have a follow up stress test to evaluate for any evidence of new or worsening coronary atherosclerotic blockages or narrowing. Only a heart catheterization can definitively evaluate for coronary blockages but a stress test can demonstrate if you have areas of heart muscle that are not receiving adequate blood flow w/ stress which will help a edge bander operator to pinpoint which coronary distribution that is in jeopardy and target any procedure for stenting. An echocardiogram (ultrasound) has also been ordered to evaluate the function of your heart looking for signs of heart failure or valvular problems. If you have further angina despite the addition of Imdur to your medications, you should use your nitroglycerin as you have been instructed and if the chest discomfort or dyspnea does not quickly resolve you should call 911. If you are having more frequent symptoms and find that you are having to take the nitroglycerin more regularly then you should also go to nearest emergency room to be evaluated. Stand Alone Forms: Nursing Discharge Form Referrals: Kit Metcalf MD [Primary Care Provider] - (Please call on Friday to make a follow up within 10-14 days) Stephanie Crews MD [ [facility] STAFF PHYSICIAN] - (Please call on Friday to make a follow up apt ) Lenin Barragan MD [ [facility] STAFF PHYSICIAN] - (needs earliest appt possible as patient is having progressive angina) Activity:: Activity as Tolerated Equipment/Supplies:: No Equipment Needed Diet:: Low Sodium Discharge Orders Discharge Orders: Discharge Order (Routine); Ordered 10/18/23 Ordered By: Britton Mayfield Other Ambulatory Orders: US echocardiogram (Routine) Timeframe: 1 Week Facility: [facility] - Location: DIAGNOSTIC IMAGING Ordered By: Britton AVENDAÑO MPI rest & stress grp (Routine) Timeframe: 1 Week Facility: [facility] - Location: DIAGNOSTIC IMAGING DEPT Ordered By: Britton Mayfield DS: Summary Time Spent with Patient providing and/or coordinating discharge services: Greater than 30 minutes Specific discharge activities: Interview/exam of patient; review of discharge instructions, completion of prescriptions/discharge instructions; discussion w/ nursing and CM; documentation of hospital visit Status at Discharge Functional status at discharge: independent ambulation Overall status at discharge: patient is back to baseline Mental Status: mental status grossly normal Speech and Movement: speech and movement normal Mood: congruent mood Affect: normal affect Quality:SDOH Health Related Social Needs: No Data to Display Exam Narrative Exam Narrative: Elderly white male who is alert and oriented x 3 lying in bed stating he is tired from a prolonged night last night in the emergency department and being admitted to the hospital. He is asking if he can go home. He is sitting here visiting with his and his daughter. Currently denies any chest pain or pressure or dyspnea. Neck supple no overt JVD Lungs are clear to auscultation Heart is irregularly irregular and controlled rate no appreciable murmur rub or thrill Abdomen obese soft and nontender Extremities trace pedal and pretibial edema no cyanosis Psych Mental Status: mental status grossly normal Speech and Movement: speech and movement normal Mood: congruent mood Affect: normal affect DS: Data Vitals/I&O Vitals and I&O: Vital Signs Temperature 36.4 C L 10/18/23 11:46 Temperature Source Tympanic 10/18/23 11:46 Pulse 90 10/18/23 11:46 Pulse Rhythm Regular 10/18/23 12:15 Pulse 66 10/18/23 04:47 Respiratory Rate 16 10/18/23 11:46 Respiratory Effort Normal, Non-Labored 10/18/23 12:15 Respiratory Depth Normal 10/18/23 12:15 Respiratory Pattern Normal 10/18/23 12:15 Blood Pressure 125/66 10/18/23 11:46 Blood Pressure Mean 104 10/18/23 04:47 Pulse Oximetry 92 10/18/23 11:46 Oxygen Delivery Method Room Air 10/18/23 11:46 Oxygen Flow Rate 0 10/18/23 11:46 Pain Level 0 10/18/23 11:46 Intake & Output 10/17/23 10/18/2310/18/24 23:59 11:59 23:59 Intake Total 705 / 705 Output Total 1500 / 1500 Balance -795 / -795 Weight 79.832 kg Intake: IV 705 / 705 Output: Urine 1500 / 1500 Other: Urine Color Yellow Yellow Urine Appearance Clear Clear Urine Odor Normal Stool Size Moderate Stool Characteristics Formed Brown Voiding Methods Toilet Toilet Urinal Data Completed and Pending Labs on day of discharge: Labs from last 24 hours 10/18/23 10/18/23 03:50 00:20 WBC 7.98 RBC 5.52 Hgb 16.9 Hct 50.1 H MCV 91 MCH 30.6 MCHC 33.7 RDW 12.8 Plt Count 123 L MPV 12.6 H Immature Gran % 0.3 Neutrophils % 59.4 Lymphocytes % 30.3 Monocytes % 7.6 Eosinophils % 1.5 Basophils % 0.9 Nucleated RBC % 0.0 Absolute Neutrophils 4.74 Absolute Lymphocytes 2.42 Absolute Monocytes 0.61 Absolute Eosinophils 0.12 Absolute Basophils 0.07 PT 12.0 H INR 1.2 H Sodium 138 Potassium 4.3 Chloride 99 Carbon Dioxide 31.2 Anion Gap 7.8 BUN 10 Creatinine 1.1 Est GFR (CKD-EPI 2020) 64.97 Glucose 119 H Calcium 9.4 Magnesium 1.7 L Total Bilirubin 0.6 AST 28 ALT 25 Alkaline Phosphatase 66 Troponin I < 50 < 50 NT-Pro-B Natriuret Pep 1190 H Total Protein 7.1 Albumin 3.4 Triglycerides 90 Total Cholesterol 140 LDL Cholesterol, Calc 77 HDL Cholesterol 45 PFSH All Active Problems Discharge planning issues (Acute) Erythrocytosis (Acute) Anxiety (Chronic) Light-headedness (Acute) Hypomagnesemia (Acute) Congestive heart failure (Chronic) Coronary artery disease (Chronic) Angina at rest (Acute) Atypical chest pain (Acute 09/01/14) Coronary artery disease (Chronic) a. S/p KS 2001 presenting with chest pain b. S/p KS 2005 presenting with exertional dyspnea c. S/p LAD stenting d. Negative stress echo 2009 Hypertension (Chronic) Hyperlipidemia (Chronic) Thrombocytopenia (Chronic) GERD (gastroesophageal reflux disease) (Chronic) Lower urinary tract symptoms (LUTS) (Chronic) h/o tia (Chronic) a. transient speech deficit b. Chronic Plavix since Benign head tremor (Chronic) Acne rosacea (Chronic) Medical History H/O prostate cancer a. [id number] january score 9 b. S/p radiation treatment and androgen deprivation therapy A-fib Hiatal hernia Gross hematuria Surgical History History of back surgery Hx of heart artery stent [id number] F/U with PCP at [facility] H/O hernia repair Family History Brother Alcohol use disorder Father , age 71 Stroke Social History Smoking/Tobacco Use Status: Former Tobacco Use Quit Date: 09/22/94 Smoking risk assessment performed?: Yes Alcohol Intake: former Drug use: Never Substance use type: does not use Housing: house Do you feel safe at home: Yes Do you feel safe in your relationship?: Yes Additional Social history: Lives with Kierra in [place] [facility]. Retired from [employer]. Time Spent with Patient Time Spent with Patient: <45 minutes Time was spent: preparing to see the patient(eg.review tests), ordering medications,tests, procedures, referring, communicating with other health personal care attendant, indepentently interpreting results, counseling the patient and care coordination
== END 2023-10-18 14:46 | disposition home or self-care (01) ==
LOC: ER 04:34 → MS 05:04
PROVIDERS: Admitting Provider Family Medicine; Emergency Provider Emergency Medicine Emergency Medical Services; PCP Family Medicine; Visit Provider Family Medicine
DX: I25.118 Atherosclerotic heart disease of native coronary artery with other forms of angina pectoris (principal); I48.91 Unspecified atrial fibrillation; D69.6 Thrombocytopenia, unspecified; K21.9 Gastro-esophageal reflux disease without esophagitis; D75.1 Secondary polycythemia; I50.9 Heart failure, unspecified; Z95.5 Presence of coronary angioplasty implant and graft; Z86.73 Personal history of transient ischemic attack (TIA), and cerebral infarction without residual deficits; I25.2 Old myocardial infarction; I11.0 Hypertensive heart disease with heart failure; E83.42 Hypomagnesemia; E78.5 Hyperlipidemia, unspecified; G25.0 Essential tremor; K44.9 Diaphragmatic hernia without obstruction or gangrene; Z85.46 Personal history of malignant neoplasm of prostate
CPT/HCPCS: 00123; 36415; 80053; 80061; 93005; 96361; 96365; 96372; 96375; 99291; J1650; 71046; 83735; 83880; 84484; 85025; 85610; 93010; 99234; G0378; J1941; J3475

== ENCOUNTER → 2023-10-29 01:30 | Outpatient (CLI) | payer MEDICARE, SELFPAY ==
--- NOTE | 2023-10-29 14:30 | DI.US_ITS ---
APPROVED REPORT EXAM: Comprehensive 2D, Doppler, and color-flow Echocardiogram Patient Location: Out-Patient Substation Operator Transforming: Sanya Arzate RDCS (AE) Conclusion The atria are moderately dilated, RV mildly dilated, LV normal. Normal LV function EF 60-65%. Normal RV function. Anatomically normal valves. Mild MR,AI;moderate TR with mild phtn. No intracardiac shunt No pericardial effusion. Wall motion Left Ventricle Left ventricular cavity is small. The left ventricular systolic function is normal. The left ventricu lar ejection fraction is within the normal range. There is normal left ventricular wall thickness. Th ere is normal LV segmental wall motion. There is no ventricular septal defect visualized. LVEF is 55- 60%. Right Ventricle Right ventricle is moderately dilated. Right ventricular systolic function is grossly normal. Atria Left atrium is mildly dilated. Right atrium is severely dilated. The interatrial septum is intact wit h no evidence for an atrial septal defect. Aortic Valve The Aortic valve is sclerotic. Aortic valve is probably trileaflet. There is no aortic valvular steno sis. Mild aortic regurgitation. Mitral Valve The mitral valve is normal in structure. No evidence of mitral valve stenosis. Mild mitral regurgitat ion. Tricuspid Valve The tricuspid valve is normal in structure. There is no tricuspid valve stenosis. Moderate tricuspid regurgitation. The RVSP is 42.9 mmHg. Pulmonic Valve The pulmonary valve is normal in structure. There is no pulmonic valvular stenosis. Mild to moderate pulmonic regurgitation. Great Vessels The aortic root is normal in size. The ascending aorta is normal in size. Aortic arch is not well vis ualized. IVC is normal in size and collapses >50% with inspiration. Pericardium There is no pericardial effusion. 2D Dimensions IVSD d PLAX 0.85 cm M: 0.6-1.2 Ao Root d 3.13 cm M: 3.1 - 3.7 LVPW d PLAX 0.90 cm M: 0.6 - 1.2 Ao Asc Diam d 2.41 cm M: 2.6 - 3.4 LVID d PLAX 3.84 cm M: 4.2 - 5.8 LVDs 2.77 cm M: 2.5 - 4.0 LV EF Teichholz 54.9 % FS 28.00 % LV EDV (Teich) 63.6 mL LV ESV (Teich) 28.7 mL Stroke Vol Index (Teich) 18.37 M-Mode TAPSE 2.18 cm (M/F) >1.7 Auto EF LV EDV A4C 83.5 mL LV EDV A2C 94.3 mL LV EDV BP 89.2 mL LV ESV A4C 33.6 mL LV ESV A2C 37.5 mL LV ESV BP 35.4 mL LVEF(%) A4C 59.8 % LVEF(%) A2C 60.3 % LVEF(%) BP 60.3 % LV SV A4C 49.9 ml LV SV A2C 56.8 ml LV SV BP 53.8 ml LV CO A4C 3.1 L/min LV CO A2C 2.9 L/min LV CO BP 3.0 L/min HR A4C 61.33 BPM HR A2C 50.27 BPM LV EDV Index (BP) LA Volume LA Length A4C 5.7 cm LA Length A2C 5.0 cm LA Area A4C s 15.33 cm2 LA Area A2C s 14.87 cm2 LA Vol A4C A-L 35.04 mL LA Vol A2C A-L 37.60 mL LA Vol Biplane A-L 38.8 mL LA Vol/BSA A4C A-L LA Vol/BSA A2C A-L LA Vol/BSA BP A-L 20.4 mL/m2 LA Vol A4C MOD 32.9 mL LA Vol A2C MOD 37.0 mL LA Vol BP MOD 36.9 mL RA Volume RA Area A4C 27.7 cm2 RA ESV A4C (A-L) 105.8mL RA Vol/BSA A4C A-L RA Length A4C 6.1 cm RA ESV A4C (MOD) 103.0mL LV Diastology MV E' medial 0.079 (>0.07 m/s) MV E Vmax 1.07 (0.4-1.3 m/s) MV E/E' MED 13.53 (<14) MV E' lateral 0.113 (>0.1 m/s) MV E/E' LAT 9.48 (<14) MV E' Average 0.096 m/s MV E/E'(average) 11.15 Aortic Valve AoV Vmax 2.11 m/s LVOT Vmax 0.80 m/s AoV Peak Grad 35.0 mmHg LVOT Peak Grad 2.5 mmHg AoV Area (Vmax) 1.22 cm2 LVOT VTI 0.192 m AoV VTI 0.422 m LVOT Mean Grad 1.4 mmHg AoV Mean Joe. 1.62 m/s LVOT SV 62.20 mL AoV Mean Grad 11.5 mmHg LVOT Diam s 2.00 cm AoV Area (VTI) 1.47 cm2 AV Regurg Peak Gr. 52.05 mmHg Velocity Ratio 0.38 AR Decel [place] 1.8m/sec2 AR DT 1979 msec AR PHT 574 msec AR Vmax 3.61 m/s Mitral Valve MV DT 151 (160-240 msec) Pulmonary Valve PV Vmax 1.21 (0.5-1.5 m/s) RVOT Vmax 0.58 m/s PV Peak Grad 5.8 mmHg RVOT Peak Gr. 1.4 mmHg PV Mean Joe 0.85 m/s RVOT VTI 0.111 m PV Mean Grad 3.2 mmHg RVOT Mean Gr. 0.8 mmHg Tricuspid Valve RA Pressure 3.00 mmHg TR Vmax 3.16 m/s TR Peak Grad 39.8 mmHg RVSP (TR) 42.9 mmHg
== END ==
PROVIDERS: PCP Family Medicine; Visit Provider Internal Medicine
DX: I20.89 Other forms of angina pectoris (principal); I50.9 Heart failure, unspecified
CPT/HCPCS: 93306

== ENCOUNTER → 2023-10-31 12:32 | Outpatient (BNVA) | payer MEDICARE, SELFPAY | PROVIDERS: PCP Family Medicine; Referring Provider Family Medicine; Visit Provider Internal Medicine Interventional Cardiology | DX: I25.118 Atherosclerotic heart disease of native coronary artery with other forms of angina pectoris (principal); I10 Essential (primary) hypertension | CPT/HCPCS: 99213 ==

== ENCOUNTER 2023-11-18 22:46 | Emergency (ER) | payer MEDICARE, SELFPAY ==
[2023-11-18 22:54] VITALS: BP 189/77; PULSE 75; RESP 18; TEMP 37; O2SAT 96
--- NOTE | 2023-11-18 23:00 | DI.CT_ITS ---
Exam(s) CT ABDOMEN PELVIS W EXAM: CT ABDOMEN PELVIS W CLINICAL HISTORY: GI bleeding, eval for tics/mass TECHNIQUE: Imaging Protocol: Axial computed tomography images with coronal and sagittal reformatted images were created and reviewed. CONTRAST MATERIAL: Intravenous: Omnipaque 350 Contrast volume:100 mL Oral: No COMPARISON: CT CT CHEST/ABD/PEL W from 12/05/2021 FINDINGS: ABDOMEN: Lung Bases: Coronary artery calcifications and/or stents. There is a small paraesophageal hernia. M ild cardiomegaly. Mild pulmonary fibrosis in the lung bases. Liver: Normal density. No measurable mass. Portal, Superior Mesenteric, and Splenic Veins: Unremarkable. Gallbladder and Biliary Tract: There is a gallstone seen near the neck of the gallbladder. There is no biliary ductal dilatation. No gallbladder wall thickening or pericholecystic fluid. Pancreas: Normal density, no abnormal calcifications or inflammatory process. Spleen: Stable small cysts are seen in the spleen. Adrenals: No masses seen. Kidneys: Normal size, contour and axis. No radiodense stones or obstructive uropathy. There are bilat eral simple renal cysts. No follow-up is recommended. Abdominal Aorta: Abdominal portion non-dilated. Atherosclerotic calcification is present. Bowel: There is diverticulosis in the colon without evidence of acute diverticulitis. There is no ev idence of bowel obstruction. There is mild wall thickening seen in the rectum. The stomach is incom pletely distended limiting evaluation. Appendix is unremarkable. Peritoneal Cavity: No ascites, collection or mesenteric inflammatory response. No free air. Lymph Nodes: Within normal limits. Bones: Within normal limits for the patient's age. There is sclerosis seen in the sacroiliac joints bilaterally which may represent old sacral insufficiency fractures. Soft Tissues: Unremarkable. PELVIS: Bladder: There is mild thickening of the wall of the urinary bladder. Reproductive Organs: Prostate gland appears mildly enlarged. Prostatic seeds are present. Lymph Nodes: Within normal limits. Bones: Within normal limits for the patient's age. IMPRESSION: 1. Colonic diverticulosis without evidence of acute diverticulitis. 2. Thickening of the wall of the urinary bladder. This may be due to chronic bladder outlet obstruct ion. Cystitis cannot be excluded. The prostate gland is mildly enlarged. 3. Cholelithiasis. Gallbladder stone is seen in the neck of the gallbladder. There is no biliary du ctal dilatation, pericholecystic fluid or gallbladder wall thickening. There is continued concern fo r gallbladder pathology, an ultrasound should be obtained. 4. There is mild thickening of the wall of the rectum which can be seen with proctitis. RADIATION DOSE DELIVERED: 899.88mGy.cm Total DLP DATA REPOSITORY: All CT scans at this facility are submitted to the National Radiology Data Registry (NRDR) Dose Index Registry (DIR) with the [employer] (A[employer]). RADIATION OPTIMIZATION: All CT scans at this facility use at least one of these dose optimization te chniques: automated exposure control; mA and/or kV adjustment per patient size (includes targeted exa ms where dose is matched to clinical indication); or iterative reconstruction.
--- NOTE | 2023-11-18 23:15 | W.ED.GENAD ---
Discharge Plan Disposition Patient Disposition: Home Condition: Good Discharge Details Clinical Impression: Rectal bleeding, Acute proctitis Primary Care Provider: Kit Metcalf ED Provider: Brandan Mancini Home Meds and New Rx's Prescriptions: New metronidazole 500 mg tablet 500 mg PO TID 7 Days Qty: 21 0RF docusate sodium [Colace] 100 mg capsule 100 mg PO DAILY Qty: 20 0RF No Action simvastatin 20 mg tablet 20 mg PO DAILY Patient Comments: TAKE ONE TABLET BY MOUTH EVERY DAY IN THE EVENING lisinopril 10 MG tablet 1 tab PO DAILY metoprolol tartrate 50 MG tablet 50 mg PO BID omeprazole 20 MG capsule,delayed release(DR/EC) 20 mg PO DAILY@0730 clopidogrel [Plavix] 75 MG tablet 75 mg PO DAILY Qty: 30 0RF aspirin 81 mg Tablet,Delayed Release (Dr/Ec) 81 mg PO DAILY isosorbide mononitrate 30 mg tablet extended release 24 hr 30 mg PO DAILY Qty: 30 0RF nitroglycerin [Nitrostat] 0.4 MG tablet, sublingual 0.4 mg PO Q5M PRNQty: 30 0RF Rx Instructions: 0.4 mg tablet under the tongue at onset of chest pain, repeat q5 minutes until relief or up to 3 tablets Discharge Instructions Instructions: Rectal Bleeding (ED), Proctitis (ED) Additional Instructions: At this time your blood/hemoglobin levels are stable. There appears to be mild irritation at the end of your colon which is likely the source of the bleeding. Please do not take your aspirin and Plavix today for just a 24-hour break. You can then restart your medications in 24 hours. Please take the medication metronidazole as prescribed. It is been sent to your pharmacy on file. Please pick it up tomorrow morning. Please call the surgical offices tomorrow morning to set up a close follow-up appointment. Please take the stool softener Colace as prescribed. It will keep your stool soft and help reduce potential rebleeding. Please drink plenty fluids and stay well-hydrated. A prescription for Colace has been sent to your pharmacy. If you have a return of your bleeding, or it gets worse, please return for reassessment. If you notice any worsening of your symptoms, or any new symptoms such as vomiting, diarrhea, fever, chills, shortness of breath, chest pain, numbness, weakness, or fainting , please return immediately to the emergency department for reevaluation. Please follow up with your primary care provider as soon as possible for reassessment and reevaluation. As always, it was a pleasure participating in your medical care today. Referrals: Kit Metcalf MD [Primary Care Provider] - Jas Christina MD [ [facility] STAFF PHYSICIAN] - Celia Castro DO [OSTEOPATHIC DOCTOR] - Discharge Data Discharge Date/Time-TO BE ENTERED AT DEPARTURE: 11/19/23 02:33 HPI General Date/Time Provider Initiated Documentation: 11/18/23 22:52. HPI Narrative: This is a pleasant 88-year-old male with a past medical history of previous CVA, prostate cancer, A-fib, coronary artery disease with stenting, previous hernia repair, hiatal hernia, presents today for evaluation of GI bleeding. Patient states that at around 9:30 PM he noticed some blood in his underwear and went and had a bowel movement and had a notable amount of bright red blood in it. He had a second bowel movement at around 950 that also had a notable amount of blood. He admitted some mild abdominal achiness, but denies any focal pain. He denies any vomiting or diarrhea otherwise. He denies any new chest pain or shortness of breath during these episodes. No history of GI bleed in the past. No other complaints at this time. Related Data Home Medications Medication Instructions Recorded Confirmed lisinopril 10 mg tablet 1 tab PO DAILY 12/10/12 11/18/23 metoprolol tartrate 50 mg tablet 50 mg PO BID 12/10/12 10/18/23 omeprazole 20 mg capsule,delayed 20 mg PO DAILY@0730 12/10/12 11/18/23 release clopidogrel 75 mg tablet (Plavix) 75 mg PO DAILY #30 tabs 12/12/12 11/18/23 aspirin 81 mg tablet,delayed 81 mg PO DAILY 04/19/22 11/18/23 release isosorbide mononitrate 30 mg 30 mg PO DAILY #30 tabs 10/18/23 11/18/23 tablet,extended release 24 hr nitroglycerin 0.4 mg sublingual 0.4 mg PO Q5M PRN #30 tabs 10/18/23 11/18/23 tablet (Nitrostat) simvastatin 20 mg tablet 20 mg PO DAILY 10/21/23 11/18/23 docusate sodium 100 mg capsule 100 mg PO DAILY #20 caps 11/19/23 (Colace) metronidazole 500 mg tablet 500 mg PO TID 7 days #21 tabs 11/19/23 Previous Rx's Medication Instructions Recorded clopidogrel 75 mg tablet (Plavix) 75 mg PO DAILY #30 tabs 12/12/12 isosorbide mononitrate 30 mg 30 mg PO DAILY #30 tabs 10/18/23 tablet,extended release 24 hr nitroglycerin 0.4 mg sublingual 0.4 mg PO Q5M PRN #30 tabs 10/18/23 tablet (Nitrostat) docusate sodium 100 mg capsule 100 mg PO DAILY #20 caps 11/19/23 (Colace) metronidazole 500 mg tablet 500 mg PO TID 7 days #21 tabs 11/19/23 Allergies Allergy/AdvReac Type Severity Reaction Status Date / Time No Known Allergies Allergy Verified 10/31/23 13:12 General Stated Complaint: GI Bleed MILLIE: 3 Review of Systems All systems reviewed & are unremarkable except as noted in HPI and below Exam Narrative Exam Narrative: 1.Const: Well-nourished, Well-developed, appearing stated age 2.Eyes: PERRL, no conjunctival injection, and symmetrical lids. 3.ENT: Atraumatic external nose and ears. Moist MM. Neck: Symmetric, trachea midline, No thyromegaly. 4.CVS: +S1/S2, No murmurs or gallops. Peripheral pulses 2+ and equal in all extremities. Brisk capillary refill in all extremities. 5.RESP: Unlabored respiratory effort. Clear to auscultation bilaterally. No wheezes rales or rhonchi 6.GI: Soft, Nontender/Nondistended, No hepatosplenomegaly. No guarding or rebound. Rectal exam demonstrates mild amount of bright red blood. No active hemorrhage. Some dried blood on the gluteal cleft. No large hemorrhoids. 7.MSK: Normocephalic/Atraumatic, Extremities w/o deformity or ttp No cyanosis or clubbing, Normal movement of all extremities 8.Skin: Warm, Dry. No rashes or lesions. 9.Neuro: medical staff services coordinator II-XII grossly intact. Sensation grossly intact, no focal neurologic deficits. 10.Psych: (AAO) x3. Appropriate mood and affect Course Vital Signs Vital signs: Vital Signs Temperature 37 C 11/18/23 22:54 Pulse 75 11/18/23 22:54 Respiratory Rate 18 11/18/23 22:54 Blood Pressure 189/77 H 11/18/23 22:54 Pulse Oximetry 96 11/18/23 22:54 Temperature 37 C 11/18/23 22:54 Temperature Source Tympanic 11/18/23 22:54 Pulse 75 11/18/23 22:54 Respiratory Rate 18 11/18/23 22:54 Respiratory Effort Normal, Non-Labored 11/18/23 22:58 Blood Pressure 189/77 H 11/18/23 22:54 Pulse Oximetry 96 11/18/23 22:54 Oxygen Delivery Method Room Air 11/18/23 22:54 Oxygen Flow Rate 0 11/18/23 22:54 Medical Decision Making This is a pleasant 88-year-old male with a past medical history of previous CVA, prostate cancer, A-fib, coronary artery disease with stenting, previous hernia repair, hiatal hernia, presents today for evaluation of GI bleeding. Patient states that at around 9:30 PM he noticed some blood in his underwear and went and had a bowel movement and had a notable amount of bright red blood in it. He had a second bowel movement at around 950 that also had a notable amount of blood. He admitted some mild abdominal achiness, but denies any focal pain. He denies any vomiting or diarrhea otherwise. He denies any new chest pain or shortness of breath during these episodes. No history of GI bleed in the past. No other complaints at this time. Exam demonstrates well-appearing male, vital signs stable, mild hypertension but no tachycardia. Rectal exam demonstrates some bright red blood per rectum. Hemoccult obviously positive as well. No large hemorrhoids. No continued hemorrhage. Concern for potential active diverticular bleed, potential mass or polyp as a source less likely. Suspect lower GI bleed, however out of an abundance of precaution we will start Protonix and famotidine. Patient has been taking his aspirin and Plavix. He denies any excessive Motrin use. We will get a CT scan to evaluate for acute abdominal process, check his hemoglobin levels, gently rehydrate at 125 cc an hour normal saline, monitor closely and reassess. 1:49 AM Laboratory workup has returned, no white count bandemia or left shift. Hemoglobin levels normal, platelet levels normal. Electrolytes normal. BUN to creatinine ratio normal. No suggestion of significant proximal/upper GI bleed. CT scan results have returned, there is diverticulosis but no diverticulitis, questionable mild proctitis, with no other significant acute process. On reassessment the patient continues to feel well. Heart rate and blood pressure remains normal. The patient did have a single bowel movement here. It was formed stool. There was a small amount of blood tingeing the water, no large clots. Stool was brown in color. I suspect that the bleeding came from the mild proctitis, and was exacerbated by his aspirin and Plavix use. Patient otherwise remained stable. He is requesting to go home. I do feel that with the patient's continued stable nature discharge is reasonable with very close follow-up to be expected. We will reach out to surgery for confirmation of close follow-up and recommendations. We will give a prescription for Flagyl out of an abundance of precaution for home use, will give first dose here. Recommend cessation of aspirin and Plavix for 24 hours. Will give prescription of stool softener for home use as well. 3:32 AM Discussed the case with on-call surgery and she will close the loop with our local surgeons for close follow-up. I again reiterated the plan very closely with the patient, the patient's , and the patient's daughter who is at bedside. I discussed the low threshold for having prompt return if symptoms continue or worsen. I also discussed that I am available for phone consult for the next few nights while I am on night warehouse selector still. Discussed red flags which to return. All family was in agreement with plan. Patient was quite ready to go home. I have extensively reviewed the treatment plan and discharge instructions with the patient and their family. I have addressed all patient concerns at this time. The patient and family was made aware of what symptoms to monitor for that would warrant a return to the emergency department. Discussed the plan with the patient and family, they demonstrate verbal understanding and agreement with our assessment and plan at this time. The documentation in this chart was dictated using [employer] dictation software. Please excuse any dictation errors. FINDINGS: Coronary arteries: Coronary artery calcifications. Diaphragm: Small hiatus hernia. Liver: Normal. No mass. Gallbladder and bile ducts: 1.5 cm stone in the gallbladder. No ductal dilatation. Pancreas: Normal. No ductal dilation. Spleen: There are 2 small low-attenuation findings in the spleen, likely cysts largest measures 9 mm. These are unchanged from the prior exam. Adrenal glands: Normal. No mass. Kidneys and ureters: Kidneys enhance symmetrically. No renal stones or hydronephrosis. Bilateral small renal cysts are stable. Stomach and bowel: Small bowel is normal in caliber. There is mild circumferential wall thickening of the mid to distal rectum with adjacent mild perirectal fat stranding suspicious for proctitis. Colonic diverticulosis. No evidence of diverticulitis. No active GI bleeding seen however study was not performed as a dedicated triple phase exam limiting assessment. Appendix: Normal appendix. Intraperitoneal space: Unremarkable. No free air. No significant fluid collection. Vasculature: Atherosclerotic disease. No aortic aneurysm. Lymph nodes: No pathologic sized adenopathy. Urinary bladder: There is mild nonspecific circumferential wall thickening the bladder which appears similar to prior study. Reproductive: Radiation seeds are seen in the prostate. Prostate is within upper limits of normal for size. Bones/joints: Osteopenia. Degenerative changes in the spine. Soft tissues: Unremarkable. IMPRESSION: Colonic diverticulosis without diverticulitis. Findings suspicious for proctitis. Cholelithiasis. Small hiatus hernia. Thank you for allowing us to participate in the care of your patient. Dictated and Authenticated by: Katia Ruiz MD 11/19/2023 1:34 AM Eastern Time ([place] & [place]) Quality:SDOH Health Related Social Needs: No Data to Display PFSH All Active Problems (Updated 11/19/23 @ 03:35 by Brandan Mancini DO) Rectal bleeding (Acute) Acute proctitis (Acute) Discharge planning issues (Acute) Erythrocytosis (Acute) Anxiety (Chronic) Light-headedness (Acute) Hypomagnesemia (Acute) Congestive heart failure (Chronic) Coronary artery disease (Chronic) Angina at rest (Acute) Atypical chest pain (Acute 09/01/14) Coronary artery disease (Chronic) a. S/p UT 2001 presenting with chest pain b. S/p UT 2005 presenting with exertional dyspnea c. S/p LAD stenting d. Negative stress echo 2009 Hypertension (Chronic) Hyperlipidemia (Chronic) Thrombocytopenia (Chronic) GERD (gastroesophageal reflux disease) (Chronic) Lower urinary tract symptoms (LUTS) (Chronic) h/o tia (Chronic) a. transient speech deficit b. Chronic Plavix since Benign head tremor (Chronic) Acne rosacea (Chronic) Medical History CVA (cerebral vascular accident) H/O prostate cancer a. T2N0M0 january score 9 b. S/p radiation treatment and androgen deprivation therapy A-fib paroxysmal Hiatal hernia Gross hematuria Surgical History History of back surgery Hx of heart artery stent [id number] F/U with PCP at [facility] H/O hernia repair Family History Brother Alcohol use disorder Father , age 71 Stroke Social History Smoking/Tobacco Use Status: Former Tobacco Use Quit Date: 09/22/94 Smoking risk assessment performed?: Yes Alcohol Intake: former Drug use: Never Substance use type: does not use Housing: house Do you feel safe at home: Yes Do you feel safe in your relationship?: Yes Additional Social history: Lives [place] [facility] [place]. Retired from [employer].
[2023-11-18] MEDS: Pantoprazole 40 MG VIAL IVP (23:18)
[2023-11-18] MEDS: Normal Saline 1,000 ML 150 ML IV (23:18)
[2023-11-18] MEDS: Famotidine 20 MG/2 ML VIAL IVP (23:18)
[2023-11-18 23:34] LABS: Abs Immature Grans 0.02 10^3/uL (0.0-0.06); Absolute Basophil Count 0.06 10^3/uL (0.0-0.2); Absolute Eosinophil Count 0.18 10^3/uL (0.0-0.7); Absolute Lymphocyte Count 3.24 10^3/uL (1.2-3.4); Absolute Monocyte Count 0.75 10^3/uL (0.1-0.8); Absolute Neutrophil Count 4.55 10^3/uL (1.2-6.7); Basophils % 0.7; HCT 49.9 % (40.0-50.0); HGB 16.6 g/dL (13.5-17.5); Immature Grans % 0.2; Lymphocytes % 36.8; MCH 30.7 pg (27.0-33.0); MCHC 33.3 % (32.0-36.0); MCV 92 fL (80-95); MPV 12.5 fL (8.0-11.0); Monocytes % 8.5; Neutrophils % 51.8; Platelet Count 137 10^3/uL (130-400); RDW 13.2 % (11.8-14.1); RDW-SD 44.4 fL
[2023-11-18 23:50] LABS: ALT 22 U/L (16-63); AST 20 U/L (15-37); Albumin 3.4 g/dL (3.4-5.0); Alkaline Phosphatase 77 U/L (46-116); BUN 10 mg/dL (7-18); Bilirubin, Total 0.5 mg/dL (0.2-1.0); CREATININE 1.2 mg/dL (0.70-1.30); Calcium 8.8 mg/dL (8.5-10.1); Chloride 101 mmol/L (98-107); Estimated GFR 58.53 (mL/min/1.73m2); Glucose 146 mg/dL (74-106); Potassium 3.8 mmol/L (3.5-5.1); Sodium 139 mmol/L (136-145)
[2023-11-18 23:53] LABS: INR 1.1 (0.9-1.1); PTT Activated 25.2 sec (23.6-32.8); Prothrombin Time 11.4 sec (9.1-11.1)
[2023-11-19] MEDS: Normal Saline Flush 10 ML SYR IVP (00:07)
[2023-11-19] MEDS: Omnipaque 350 MG/ML 100 ML BTL IJ (00:08)
[2023-11-19] MEDS: Normal Saline - Diluent 50 ML VIAL IJ (00:09)
[2023-11-19 00:22] VITALS: BP 179/85; PULSE 81; RESP 18; O2SAT 95
--- NOTE | 2023-11-19 01:34 | DI.VRAD_ITS ---
PROCEDURE INFORMATION: Exam: CT Abdomen And Pelvis With Contrast Exam date and time: 11/19/2023 12:11 AM Age: 88 years old Clinical indication: Other: Gi bleed, eval for tics/mass; Prior surgery; Surgery date: 6+ months; Surgery type: Back surgery, hernia repair; Additional info: HX of prostate CA TECHNIQUE: Imaging protocol: Computed tomography of the abdomen and pelvis with contrast. Radiation optimization: All CT scans at this facility use at least one of these dose optimization techniques: automated exposure control; mA and/or kV adjustment per patient size (includes targeted exams where dose is matched to clinical indication); or iterative reconstruction. Contrast material: OMNIPAQUE 350; Contrast volume: 100 ml; Contrast route: INTRAVENOUS (IV); COMPARISON: CT CHEST/ABD/PEL W 12/05/2021 10:28 AM FINDINGS: Coronary arteries: Coronary artery calcifications. Diaphragm: Small hiatus hernia. Liver: Normal. No mass. Gallbladder and bile ducts: 1.5 cm stone in the gallbladder. No ductal dilatation. Pancreas: Normal. No ductal dilation. Spleen: There are 2 small low-attenuation findings in the spleen, likely cysts largest measures 9 mm. These are unchanged from the prior exam. Adrenal glands: Normal. No mass. Kidneys and ureters: Kidneys enhance symmetrically. No renal stones or hydronephrosis. Bilateral small renal cysts are stable. Stomach and bowel: Small bowel is normal in caliber. There is mild circumferential wall thickening of the mid to distal rectum with adjacent mild perirectal fat stranding suspicious for proctitis. Colonic diverticulosis. No evidence of diverticulitis. No active GI bleeding seen however study was not performed as a dedicated triple phase exam limiting assessment. Appendix: Normal appendix. Intraperitoneal space: Unremarkable. No free air. No significant fluid collection. Vasculature: Atherosclerotic disease. No aortic aneurysm. Lymph nodes: No pathologic sized adenopathy. Urinary bladder: There is mild nonspecific circumferential wall thickening the bladder which appears similar to prior study. Reproductive: Radiation seeds are seen in the prostate. Prostate is within upper limits of normal for size. Bones/joints: Osteopenia. Degenerative changes in the spine. Soft tissues: Unremarkable. IMPRESSION: Colonic diverticulosis without diverticulitis. Findings suspicious for proctitis. Cholelithiasis. Small hiatus hernia. Dictated and Authenticated by: Katia Ruiz MD. Ordering:COURTNEY Gipson MD
[2023-11-19 01:55] VITALS: BP 176/66; PULSE 70
[2023-11-19] MEDS: metroNIDAZOLE 500 MG TAB PO (02:32)
[2023-11-19 02:33] VITALS: BP 170/85; PULSE 76; RESP 16; O2SAT 98
--- NOTE | 2023-11-19 02:38 | NUR.NOTE ---
Pt placed on care management referral for surgical for GI Bleed to be seen as soon as possible per ER Dr Mancini
== END 2023-11-19 02:33 | disposition home or self-care (01) ==
PROVIDERS: Emergency Provider Student in an Organized Health Care Education/Training Program; PCP Family Medicine
DX: K62.5 Hemorrhage of anus and rectum (principal); K62.89 Other specified diseases of anus and rectum; I48.91 Unspecified atrial fibrillation; I10 Essential (primary) hypertension; E78.5 Hyperlipidemia, unspecified; I25.10 Atherosclerotic heart disease of native coronary artery without angina pectoris; Z86.73 Personal history of transient ischemic attack (TIA), and cerebral infarction without residual deficits; Z79.02 Long term (current) use of antithrombotics/antiplatelets; Z79.82 Long term (current) use of aspirin; Z87.891 Personal history of nicotine dependence
CPT/HCPCS: 80053; 86850; 86900; 86901; 96361; 96374; 96375; 99285; 74177; 85025; 85610; 85730; 99284; J2470; J3490

== ENCOUNTER → 2023-11-27 10:56 | Outpatient (BNVA) | payer MEDICARE, SELFPAY | PROVIDERS: PCP Family Medicine; Referring Provider Family Medicine; Visit Provider Surgery | DX: K62.5 Hemorrhage of anus and rectum (principal); K57.30 Diverticulosis of large intestine without perforation or abscess without bleeding; R93.41 Abnormal radiologic findings on diagnostic imaging of renal pelvis, ureter, or bladder; K44.9 Diaphragmatic hernia without obstruction or gangrene; K21.9 Gastro-esophageal reflux disease without esophagitis; K57.92 Diverticulitis of intestine, part unspecified, without perforation or abscess without bleeding | CPT/HCPCS: 99214 ==

== ENCOUNTER 2023-12-29 09:40 | Outpatient (CLI) | payer MEDICARE, SELFPAY ==
[2023-12-29 10:01] LABS: Abs Immature Grans 0.02 10^3/uL (0.0-0.06); Absolute Basophil Count 0.04 10^3/uL (0.0-0.2); Absolute Eosinophil Count 0.06 10^3/uL (0.0-0.7); Absolute Lymphocyte Count 3.15 10^3/uL (1.2-3.4); Absolute Monocyte Count 0.55 10^3/uL (0.1-0.8); Absolute Neutrophil Count 4.41 10^3/uL (1.2-6.7); Basophils % 0.5; Eosinophils % 0.7; HCT 48.7 % (40.0-50.0); HGB 16.6 g/dL (13.5-17.5); Immature Grans % 0.2; Lymphocytes % 38.3; MCH 30.9 pg (27.0-33.0); MCHC 34.1 % (32.0-36.0); MCV 91 fL (80-95); MPV 12.8 fL (8.0-11.0); Monocytes % 6.7; Neutrophils % 53.6; Platelet Count 151 10^3/uL (130-400); RBC 5.38 10^6/uL (4.36-5.78); RDW 12.9 % (11.8-14.1); RDW-SD 42.7 fL; WBC 8.23 10^3/uL (4.4-10.8)
[2023-12-29 10:35] LABS: ALT 34 U/L (16-63); AST 30 U/L (15-37); Albumin 3.2 g/dL (3.4-5.0); Alkaline Phosphatase 77 U/L (46-116); Anion Gap 7.7 mmol/L (3-11); BUN 11 mg/dL (7-18); Bilirubin, Total 0.7 mg/dL (0.2-1.0); CO2 33.3 mmol/L (21.0-32.0); CREATININE 1.1 mg/dL (0.70-1.30); Calcium 9.1 mg/dL (8.5-10.1); Chloride 103 mmol/L (98-107); Estimated GFR 64.97 (mL/min/1.73m2); Glucose 134 mg/dL (74-106); Potassium 3.9 mmol/L (3.5-5.1); Sodium 144 mmol/L (136-145); Total Protein 6.7 g/dL (6.4-8.2)
== END 2023-12-29 09:41 | disposition home or self-care (01) ==
LOC: LBO 09:41
PROVIDERS: PCP Family Medicine; Visit Provider Nurse Practitioner Family
DX: C61 Malignant neoplasm of prostate (principal)
CPT/HCPCS: 36415; 80053; 84153; 85025

== ENCOUNTER → 2024-02-06 09:52 | Outpatient (BNVA) | payer MEDICARE, SELFPAY | PROVIDERS: PCP Family Medicine; Referring Provider Family Medicine; Visit Provider Internal Medicine Cardiovascular Disease | DX: I48.91 Unspecified atrial fibrillation (principal); I25.118 Atherosclerotic heart disease of native coronary artery with other forms of angina pectoris | CPT/HCPCS: 99213 ==

== ENCOUNTER → 2024-06-07 09:36 | Outpatient (BNVA) | payer MEDICARE, SELFPAY | PROVIDERS: PCP Family Medicine; Visit Provider Internal Medicine Cardiovascular Disease | DX: I25.118 Atherosclerotic heart disease of native coronary artery with other forms of angina pectoris (principal); I48.91 Unspecified atrial fibrillation | CPT/HCPCS: 99213 ==

== ENCOUNTER 2024-06-28 02:38 | Outpatient (CLI) | payer MEDICARE, SELFPAY ==
[2024-06-28 12:54] LABS: HCT 50.5 % (40.0-50.0); HGB 16.8 g/dL (13.5-17.5); MCH 31.3 pg (27.0-33.0); MCHC 33.3 % (32.0-36.0); MCV 94 fL (80-95); MPV 12.3 fL (8.0-11.0); Platelet Count 112 10^3/uL (130-400); RBC 5.36 10^6/uL (4.36-5.78); RDW 13.2 % (11.8-14.1); RDW-SD 45.4 fL; WBC 9.23 10^3/uL (4.4-10.8)
[2024-06-28 13:37] LABS: ALT 18 U/L (16-63); AST 22 U/L (15-37); Albumin 3.3 g/dL (3.4-5.0); Alkaline Phosphatase 72 U/L (46-116); Anion Gap 6.7 mmol/L (3-11); BUN 7 mg/dL (7-18); Bilirubin, Total 0.56 mg/dL (0.2-1.0); CO2 32.3 mmol/L (21.0-32.0); CREATININE 1.1 mg/dL (0.70-1.30); Chloride 99 mmol/L (98-107); Estimated GFR 64.57 (mL/min/1.73m2); Glucose 129 mg/dL (74-106); Potassium 4.3 mmol/L (3.5-5.1); Sodium 138 mmol/L (136-145); Total Protein 6.9 g/dL (6.4-8.2)
[2024-06-28 13:42] LABS: Absolute Lymphocyte Count 2.49 10^3/uL (1.2-3.4); Absolute Monocyte Count 0.65 10^3/uL (0.1-0.8); Absolute Neutrophil Count 5.91 10^3/uL (1.2-6.7); Atypical Lymphocytes % 5 %
[2024-06-28 13:43] LABS: Absolute Basophil Count 0.09 10^3/uL (0.0-0.2); Absolute Eosinophil Count 0.09 10^3/uL (0.0-0.7); Diff Comment Manual Differential; RBC Morphology Normal
[2024-06-30 20:53] LABS: PSA, Ultrasensitive 6.8 ng/mL (<= 7.2)
== END 2024-06-28 02:39 | disposition home or self-care (01) ==
LOC: LBO 02:38
PROVIDERS: PCP Family Medicine; Visit Provider Nurse Practitioner
DX: C61 Malignant neoplasm of prostate (principal)
CPT/HCPCS: 36415; 80053; 84153; 85025

== ENCOUNTER 2024-11-25 10:34 | Emergency (ER) | payer MEDICARE, SELFPAY ==
[2024-11-25 11:23] VITALS: BP 179/74; PULSE 61; RESP 16; TEMP 36.7; O2SAT 95
[2024-11-25 12:06] LABS: Bilirubin Negative (Negative); Blood Large (Negative); Clarity Cloudy (Clear); Glucose Negative (Negative); Ketones Negative (Negative); Leukocyte Esterase Large (Negative); Nitrite Negative (Negative); Urobilinogen 0.2 mg/dL (Up to 0.2)
[2024-11-25 12:10] VITALS: BP 142/52; PULSE 54; RESP 18; O2SAT 97
[2024-11-25 12:31] LABS: Bacteria Many HPF (Negative); C & S Indicated? Yes; Casts Negative LPF (Negative); Crystals Negative HPF (Negative); Epithelial Cells Rare HPF (Negative); Mucus Negative (Negative); Other Cells Negative (Negative); RBC >50 HPF (0-2); WBC >50 HPF (0-5)
[2024-11-25] MEDS: Lidocaine 2% Jelly 6 ML SYR ×2 (14:05)
--- NOTE | 2024-11-25 15:35 | UCONE_ITS ---
Date of service: 11/25/24 Time of Service: 15:35 Assessment and Plan Assessment and plan (1) Urinary retention: Status: Acute Assessment and plan: Because of the urethral dilation, I would suggest leaving his catheter in place for a week. He can then follow-up with us for a voiding trial. History of Present Illness History of Present Illness Chief Complaint: Urinary retention Narrative: This is an 89 year old gentleman who has a history of prostate cancer. He was t reated with a combination of androgen deprivation and radiation therapy. His PSA had been rising. He has had prior episodes of hematuria. He underwent a full workup including a CT scan and cystoscopy in 2021. He had cystoscopic findings c/w radiation cystitis. There was also a median lobe of the prostate that I resected. A focus of adenocarcinoma was seen in the resected tissue. He has had intermittent gross hematuria over the past few months. He has progressed to the point where he is seeing clots in the urine and is unable to void. He presented to the ED. On evaluation, he had over 500 cc in his bladder. Staff was unable to pass a urethral catheter and I was asked to help with bladder drainage. He is anticoagulated [facility] All Active Problems (Updated 11/25/24 @ 15:53 by Brandan Manciin DO) Enlarged prostate (Acute) Urinary retention (Acute) Atherosclerosis of abdominal aorta (Acute) Diverticular disease of large intestine (Acute) Post-radiation rectal bleeding (Acute) Internal hemorrhoid, bleeding (Acute) Diverticulitis (Chronic) Abnormality of rectum (Acute) Abnormal CT scan, bladder (Acute) Discharge planning issues (Acute) Erythrocytosis (Acute) Anxiety (Chronic) Light-headedness (Acute) Hypomagnesemia (Acute) Congestive heart failure (Chronic) Coronary artery disease (Chronic) Atypical chest pain (Acute 09/01/14) Coronary artery disease (Chronic) a. S/p VT 2001 presenting with chest pain b. S/p VT 2005 presenting with exertional dyspnea c. S/p LAD stenting d. Negative stress echo 2009 Hypertension (Chronic) Hyperlipidemia (Chronic) Thrombocytopenia (Chronic) GERD (gastroesophageal reflux disease) (Chronic) Lower urinary tract symptoms (LUTS) (Chronic) h/o tia (Chronic) a. transient speech deficit b. Chronic Plavix since Benign head tremor (Chronic) Acne rosacea (Chronic) Medical History (Updated 11/25/24 @ 15:53 by Brandan Mancini DO) CVA (cerebral vascular accident) H/O prostate cancer a. T2N0M0 january score 9 b. S/p radiation treatment and androgen deprivation therapy A-fib paroxysmal Hiatal hernia Gross hematuria Surgical History History of back surgery Hx of heart artery stent [id number] F/U with PCP at [facility] H/O hernia repair Family History Brother Alcohol use disorder Father , age 71 Stroke Social History Smoking/Tobacco Use Status: Former Tobacco Use Quit Date: 09/22/94 Smoking risk assessment performed?: Yes Alcohol Intake: former Drug use: Never Substance use type: does not use Housing: house Do you feel safe at home: Yes Do you feel safe in your relationship?: Yes Additional Social history: Lives with Kierra in [facility]. Retired from [employer]. Exam Narrative Exam Narrative: He is seen on his stretcher in the ED. He does not appear septic or toxic. Initially, I prepped his urethral meatus with Betadine. I injected 2 vials of Xylocaine jelly into the urethra. I then attempted to pass a 22 Haitian coud? tipped irrigating catheter through the urethra into the bladder. I was not able to do so because of resistance felt toward the prostatic urethra. We then decided to move ahead with cystoscopy. 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 I was able to dilate the stricture with my scope. I then passed a guidewire through the scope into the bladder and placed a 22 Haitian coud? tipped irrigating catheter over the wire. The catheter balloon was inflated with 10 cc of sterile water. The urine was actually clear, so we placed a catheter plug on the irrigation port and a leg bag on the drainage port. Results Last Vital Signs Temp 36.7 C 11/25/24 11:23 Pulse 54 L 11/25/24 12:10 Resp 18 11/25/24 12:10 BP 142/52 H 11/25/24 12:10 Pulse Ox 97 11/25/24 12:10 Labs Labs: Laboratory Results - last 24 hr 11/25/24 11:50 Urine Color Dark Yellow Urine Clarity Cloudy Urine pH 7.0 Ur Specific [place] 1.020 Urine Protein 100 H Urine Ketones Negative Urine Blood Large H Urine Nitrite Negative Urine Bilirubin Negative Urine Urobilinogen 0.2 Ur Leukocyte Esterase Large H Urine RBC >50 H Urine WBC >50 H Ur Epithelial Cells Rare Urine Crystals Negative Urine Bacteria Many Urine Casts Negative Urine Mucus Negative Urine Other Negative Ur Culture Indicated? Yes Urine Glucose Negative Cystoscopy Text: His genitalia was again prepped with Betadine and 2% Xylocaine jelly was instilled into the urethra. The flexible cystoscope was then passed through the urethra. The pendulous and bulbar urethra's appeared normal. At the prostatic urethra, there was a posterior false passage with the urethral lumen identified more anteriorly. I was then able to pass my cystoscope through the urethral lumen into the bladder. In the bladder, the urine was quite clear with no clots. I passed a guidewire through the lumen of the cystoscope and removed the cystoscope. I then passed a 22 Haitian coud? tipped irrigating catheter over the guidewire. The catheter balloon was inflated with 10 cc of sterile water and the catheter was hooked to gravity drainage. As the urine remained clear, we plugged the irrigation port. Insert Bladder Catheter Text: Please see additional dictation under the cystoscopy tab for the insertion of his 22 Haitian coude tipped irrigating catheter with 10 cc sterile water in balloon
--- NOTE | 2024-11-25 15:39 | W.ED.GENAD ---
Discharge Plan Disposition Patient Disposition: Home Condition: Good Discharge Details Clinical Impression: Urinary retention, Enlarged prostate Primary Care Provider: Kit Metcalf ED Provider: Brandan Mancini Home Meds and New Rx's Prescriptions: New cephalexin 500 mg capsule 500 mg PO QID 7 Days Qty: 28 0RF No Action docusate sodium [Colace] 100 mg capsule 100 mg PO BID 30 Days Qty: 60 12RF simvastatin 20 mg tablet 20 mg PO DAILY Patient Comments: TAKE ONE TABLET BY MOUTH EVERY DAY IN THE EVENING lisinopril 10 MG tablet 5 mg PO DAILY metoprolol tartrate 50 MG tablet 50 mg PO BID omeprazole 20 MG capsule,delayed release(DR/EC) 20 mg PO DAILY@0730 clopidogrel [Plavix] 75 MG tablet 75 mg PO DAILY Qty: 30 0RF aspirin 81 mg Tablet,Delayed Release (Dr/Ec) 81 mg PO DAILY isosorbide mononitrate 30 mg tablet extended release 24 hr 30 mg PO DAILY Qty: 30 0RF nitroglycerin [Nitrostat] 0.4 MG tablet, sublingual 0.4 mg PO Q5M PRNQty: 30 0RF Rx Instructions: 0.4 mg tablet under the tongue at onset of chest pain, repeat q5 minutes until relief or up to 3 tablets Discharge Instructions Instructions: How to Care for Your Owen Catheter, Urinary Retention Additional Instructions: Please keep the Owen catheter in until you are seen by Dr. Day in 1 week. Please take the antibiotic as prescribed out of concern for potential mild infection. If you notice any worsening of your symptoms, or any new symptoms such as vomiting, diarrhea, fever, chills, shortness of breath, chest pain, numbness, weakness, or fainting , please return immediately to the emergency department for reevaluation. Please follow up with your primary care provider as soon as possible for reassessment and reevaluation. As always, it was a pleasure participating in your medical care today. Referrals: Kit Metcalf MD [Primary Care Provider] - Conrado Day MD [ [facility]] - [facility] General Date/Time Provider Initiated Documentation: 11/25/24 10:52. HPI Narrative: 89-year-old male with a past medical history of previous CVA, prostate cancer, A-fib, coronary artery disease with stenting, previous hernia repair and hiatal hernia, presents for evaluation of urinary retention. Patient states that he has noticed a small amount of blood in his urine over the last day or so, which is concerned him. Urinating has been slightly harder than normal but he is still able to pee a small amount. He admits to mild amount of suprapubic pressure. He does not appear to be the most ideal of historians at this time, so other factors or history seem to be difficult to extricate. No other major complaints at this time. No fever or chills. Related Data Home Medications ?Medication ?Instructions ?Recorded ?Confirmed lisinopril 10 mg tablet 5 mg PO DAILY 12/10/12 11/25/24 metoprolol tartrate 50 mg tablet 50 mg PO BID 12/10/12 11/25/24 omeprazole 20 mg capsule,delayed 20 mg PO DAILY@0730 12/10/12 11/25/24 release clopidogrel 75 mg tablet (Plavix) 75 mg PO DAILY #30 tabs 12/12/12 11/25/24 aspirin 81 mg tablet,delayed 81 mg PO DAILY 04/19/22 11/25/24 release isosorbide mononitrate 30 mg 30 mg PO DAILY #30 tabs 10/18/23 11/25/24 tablet,extended release 24 hr nitroglycerin 0.4 mg sublingual 0.4 mg PO Q5M PRN #30 tabs 10/18/23 11/25/24 tablet (Nitrostat) simvastatin 20 mg tablet 20 mg PO DAILY 10/21/23 11/25/24 docusate sodium 100 mg capsule 100 mg PO BID 30 days #60 caps 11/27/23 11/25/24 (Colace) cephalexin 500 mg capsule 500 mg PO QID 7 days #28 caps 11/25/24 Previous Rx's ?Medication ?Instructions ?Recorded clopidogrel 75 mg tablet (Plavix) 75 mg PO DAILY #30 tabs 12/12/12 isosorbide mononitrate 30 mg 30 mg PO DAILY #30 tabs 10/18/23 tablet,extended release 24 hr nitroglycerin 0.4 mg sublingual 0.4 mg PO Q5M PRN #30 tabs 10/18/23 tablet (Nitrostat) docusate sodium 100 mg capsule 100 mg PO BID 30 days #60 caps 11/27/23 (Colace) cephalexin 500 mg capsule 500 mg PO QID 7 days #28 caps 11/25/24 Allergies Allergy/AdvReac Type Severity Reaction Status Date / Time No Known Allergies Allergy Verified 11/25/24 11:29 General Stated Complaint: Urinary MILLIE: 3 Exam Narrative Exam Narrative: 1.Const: Well-nourished, Well-developed, appearing stated age 2.Eyes: PERRL, no conjunctival injection, and symmetrical lids. 3.ENT: Atraumatic external nose and ears. Moist MM. Neck: Symmetric, trachea midline, No thyromegaly. 4.CVS: +S1/S2, Peripheral pulses 2+ and equal in all extremities. Brisk capillary refill in all extremities. 5.RESP: Unlabored respiratory effort. Clear to auscultation bilaterally. No wheezes rales or rhonchi 6.GI: Soft, Nontender/Nondistended, No hepatosplenomegaly. No guarding or rebound. Mild pressure in the suprapubic region. Genitalia demonstrate no blood from the urethral meatus. No penile tenderness. 7.MSK: Normocephalic/Atraumatic, Extremities w/o deformity or ttp No cyanosis or clubbing, Normal movement of all extremities 8.Skin: Warm, Dry. No rashes or lesions. 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 Sensation grossly intact, no focal neurologic deficits. 10.Psych: (AAO) x3. Appropriate mood and affect Course Vital Signs Vital signs: Vital Signs Temperature 36.7 C 11/25/24 11:23 Pulse 61 11/25/24 11:23 Respiratory Rate 16 11/25/24 11:23 Blood Pressure 179/74 H 11/25/24 11:23 Pulse Oximetry 95 11/25/24 11:23 Temperature 36.7 C 11/25/24 11:23 Temperature Source Oral 11/25/24 11:23 Pulse 54 L 11/25/24 12:10 Respiratory Rate 18 11/25/24 12:10 Blood Pressure 142/52 H 11/25/24 12:10 Pulse Oximetry 97 11/25/24 12:10 Oxygen Delivery Method Room Air 11/25/24 12:10 Oxygen Flow Rate 0 11/25/24 12:10 Pain Level 5 11/25/24 15:24 Lab/Test Results Lab/Test Results: 11/25/24 11:50 Urine - Reflex from Ua Urine Culture - Pending Laboratory Tests Range/Units 11/25/24 11:50 Urine Color (Yellow) Dark Yellow Urine Clarity (Clear) Cloudy Urine pH (5-8) 7.0 Ur Specific [place] (1.005-1.025) 1.020 Urine Protein (Neg-Trace) mg/dL 100 H Urine Ketones (Negative) mg/dL Negative Urine Blood (Negative) Large H Urine Nitrite (Negative) Negative Urine Bilirubin (Negative) Negative Urine Urobilinogen (Up to 0.2) mg/dL 0.2 Ur Leukocyte Esterase (Negative) Large H Urine RBC (0-2) HPF >50 H Urine WBC (0-5) HPF >50 H Ur Epithelial Cells (Negative) HPF Rare Urine Crystals (Negative) HPF Negative Urine Bacteria (Negative) HPF Many Urine Casts (Negative) LPF Negative Urine Mucus (Negative) Negative Urine Other (Negative) Negative Ur Culture Indicated? Yes Urine Glucose (Negative) mg/dL Negative Medical Decision Making 89-year-old male with a past medical history of previous CVA, prostate cancer, A-fib, coronary artery disease with stenting, previous hernia repair and hiatal hernia, presents for evaluation of urinary retention. Patient states that he has noticed a small amount of blood in his urine over the last day or so, which is concerned him. Urinating has been slightly harder than normal but he is still able to pee a small amount. He admits to mild amount of suprapubic pressure. He does not appear to be the most ideal of historians at this time, so other factors or history seem to be difficult to extricate. No other major complaints at this time. No fever or chills. Exam demonstrates mild suprapubic palpable bladder, bedside bladder scan shows a volume of around 500 cc. Discussed risks and benefits, and a Owen catheter was attempted to be placed by nursing staff x 3. Unfortunately they were unsuccessful. Concern for prostatic obstruction. Potentially clot obstruction. After 3 unsuccessful attempts, we did contact Dr. Day who also tried manually but was also unable to pass a Owen. He then perform cystoscopy and was able to successfully pass a Owen at that time. Patient tolerated this well. Urinalysis shows evidence of large leuk esterase, greater than 50 WBCs and RBCs. Concern for potential mild infection and so out of an abundance of precaution we will start him on Keflex antibiotic. Owen catheter will remain in place. There was no actual blood once Dr. Day was able to get past the prostate. He suspects that the prostatic obstruction is the main issue. Patient will be discharged home. Discussed the case with the patient, , and daughter at bedside. I have extensively reviewed the treatment plan and discharge instructions with the patient and their family. I have addressed all patient concerns at this time. The patient and family was made aware of what symptoms to monitor for that would warrant a return to the emergency department. Discussed the plan with the patient and family, they demonstrate verbal understanding and agreement with our assessment and plan at this time. The documentation in this chart was dictated using [employer] dictation software. Please excuse any dictation errors. Quality:SDOH Health Related Social Needs: No Data to Display PFSH All Active Problems (Updated 11/25/24 @ 15:53 by Brandan Mancini DO) Enlarged prostate (Acute) Urinary retention (Acute) Atherosclerosis of abdominal aorta (Acute) Diverticular disease of large intestine (Acute) Post-radiation rectal bleeding (Acute) Internal hemorrhoid, bleeding (Acute) Diverticulitis (Chronic) Abnormality of rectum (Acute) Abnormal CT scan, bladder (Acute) Discharge planning issues (Acute) Erythrocytosis (Acute) Anxiety (Chronic) Light-headedness (Acute) Hypomagnesemia (Acute) Congestive heart failure (Chronic) Coronary artery disease (Chronic) Atypical chest pain (Acute 09/01/14) Coronary artery disease (Chronic) a. S/p LA 2001 presenting with chest pain b. S/p LA 2005 presenting with exertional dyspnea c. S/p LAD stenting d. Negative stress echo 2009 Hypertension (Chronic) Hyperlipidemia (Chronic) Thrombocytopenia (Chronic) GERD (gastroesophageal reflux disease) (Chronic) Lower urinary tract symptoms (LUTS) (Chronic) h/o tia (Chronic) a. transient speech deficit b. Chronic Plavix since Benign head tremor (Chronic) Acne rosacea (Chronic) Medical History (Updated 11/25/24 @ 15:53 by Brandan Mancini DO) CVA (cerebral vascular accident) H/O prostate cancer a. [id number] january score 9 b. S/p radiation treatment and androgen deprivation therapy A-fib paroxysmal Hiatal hernia Gross hematuria Surgical History History of back surgery Hx of heart artery stent [id number] F/U with PCP at [facility] H/O hernia repair Family History Brother Alcohol use disorder Father , age 71 Stroke Social History Smoking/Tobacco Use Status: Former Tobacco Use Quit Date: 09/22/94 Smoking risk assessment performed?: Yes Alcohol Intake: former Drug use: Never Substance use type: does not use Housing: house Do you feel safe at home: Yes Do you feel safe in your relationship?: Yes Additional Social history: Lives with Kierra in [facility]. Retired from [employer].
[2024-11-25] MEDS: Cephalexin 500 MG CAP PO (15:54)
[2024-11-25 15:56] VITALS: BP 170/80; PULSE 73; O2SAT 96
--- NOTE | 2024-11-27 07:30 | NUR.NOTE ---
Accessed Pt chart to document the antibiotics given. This is for the Specimen report. The report was clipped to the clipboard in the Dr Office
== END 2024-11-25 16:15 | disposition home or self-care (01) ==
PROVIDERS: Emergency Provider Student in an Organized Health Care Education/Training Program; PCP Family Medicine
DX: N40.1 Benign prostatic hyperplasia with lower urinary tract symptoms (principal); R33.8 Other retention of urine; C61 Malignant neoplasm of prostate; I48.91 Unspecified atrial fibrillation; I10 Essential (primary) hypertension; I25.10 Atherosclerotic heart disease of native coronary artery without angina pectoris; Z86.73 Personal history of transient ischemic attack (TIA), and cerebral infarction without residual deficits; Z95.2 Presence of prosthetic heart valve; Z79.01 Long term (current) use of anticoagulants; Z79.82 Long term (current) use of aspirin; Z92.3 Personal history of irradiation
CPT/HCPCS: 51702; 52000; 99283; 99285; 81003; 81015; 87086; 99284

== ENCOUNTER → 2024-12-02 08:42 | Outpatient (BNVA) | payer MEDICARE, SELFPAY | PROVIDERS: PCP Family Medicine; Referring Provider Family Medicine; Visit Provider Urology | DX: R33.8 Other retention of urine (principal) | CPT/HCPCS: 51798; 99213 ==

== ENCOUNTER 2024-12-20 14:34 | Outpatient (CLI) | payer MEDICARE, SELFPAY ==
[2024-12-20 14:21] LABS: Abs Immature Grans 0.03 10^3/uL (0.0-0.06); Absolute Basophil Count 0.05 10^3/uL (0.0-0.2); Absolute Eosinophil Count 0.08 10^3/uL (0.0-0.7); Absolute Lymphocyte Count 2.78 10^3/uL (1.2-3.4); Absolute Neutrophil Count 5.42 10^3/uL (1.2-6.7); Basophils % 0.6 %; Eosinophils % 0.9 %; HCT 47.7 % (40.0-50.0); HGB 15.9 g/dL (13.5-17.5); Immature Grans % 0.3 %; MCH 31.5 pg (27.0-33.0); MCHC 33.3 % (32.0-36.0); MCV 95 fL (80-95); MPV 12.4 fL (8.0-11.0); Monocytes % 6.7 %; Neutrophils % 60.5 %; Platelet Count 134 10^3/uL (130-400); RBC 5.05 10^6/uL (4.36-5.78); RDW 12.8 % (11.8-14.1); RDW-SD 44.1 fL; WBC 8.96 10^3/uL (4.4-10.8)
[2024-12-20 14:41] LABS: ALT 22 U/L (16-63); AST 19 U/L (15-37); Albumin 3.1 g/dL (3.4-5.0); Alkaline Phosphatase 79 U/L (46-116); Anion Gap 3.6 mmol/L (3-11); BUN 7 mg/dL (7-18); Bilirubin, Total 0.5 mg/dL (0.2-1.0); CO2 33.4 mmol/L (21.0-32.0); CREATININE 1.1 mg/dL (0.70-1.30); Calcium 9.2 mg/dL (8.5-10.1); Chloride 98 mmol/L (98-107); Estimated GFR 64.57 (mL/min/1.73m2); Glucose 129 mg/dL (74-106); Potassium 4.7 mmol/L (3.5-5.1); Sodium 135 mmol/L (136-145); Total Protein 6.7 g/dL (6.4-8.2)
[2024-12-22 10:33] LABS: PSA, Ultrasensitive 8.4 ng/mL (<= 7.2)
== END 2024-12-20 14:35 | disposition home or self-care (01) ==
LOC: LBO 14:34
PROVIDERS: PCP Family Medicine; Visit Provider Nurse Practitioner
DX: C61 Malignant neoplasm of prostate (principal)
CPT/HCPCS: 36415; 80053; 84153; 85025

== ENCOUNTER → 2024-12-24 09:07 | Outpatient (BNVA) | payer MEDICARE, SELFPAY | PROVIDERS: PCP Family Medicine; Referring Provider Family Medicine; Visit Provider Urology | DX: R39.9 Unspecified symptoms and signs involving the genitourinary system (principal); R33.9 Retention of urine, unspecified; R93.41 Abnormal radiologic findings on diagnostic imaging of renal pelvis, ureter, or bladder | CPT/HCPCS: 76775 ==

== ENCOUNTER 2025-06-09 08:42 | Outpatient (CLI) | payer MEDICARE, SELFPAY ==
--- NOTE | 2025-06-09 08:30 | RT.EKG_ITS ---
APPROVED REPORT Exam: Resting ECG Reason for Exam: CAD Patient Location: O HR:68 bpm ECG Measurements Heart Rate 68 AXIS RI [id number] P [id number] QRSd 120 QRS -4 QT 419 T 0 QTc 446 Conclusion Atrial fibrillation...V-rate 55- 77, irreg A-activity IVCD, consider atypical RBBB...QRSd>120mS, terminal axis(90,270) Baseline wander in lead(s) V4
== END 2025-06-09 08:43 | disposition home or self-care (01) ==
LOC: DI.CARD 08:43
PROVIDERS: PCP Family Medicine; Visit Provider Internal Medicine Cardiovascular Disease
DX: I25.10 Atherosclerotic heart disease of native coronary artery without angina pectoris (principal); I45.10 Unspecified right bundle-branch block
CPT/HCPCS: 93010

== ENCOUNTER → 2025-06-09 09:33 | Outpatient (BNVA) | payer MEDICARE, SELFPAY | PROVIDERS: PCP Family Medicine; Referring Provider Family Medicine; Visit Provider Internal Medicine Cardiovascular Disease | DX: I25.118 Atherosclerotic heart disease of native coronary artery with other forms of angina pectoris (principal); I48.91 Unspecified atrial fibrillation | CPT/HCPCS: 99213; 93005 ==

== ENCOUNTER 2025-06-22 10:57 | Outpatient (CLI) | payer MEDICARE, SELFPAY ==
[2025-06-22 11:18] LABS: Abs Immature Grans 0.02 10^3/uL (0.0-0.06); HCT 48.2 % (40.0-50.0); HGB 16.3 g/dL (13.5-17.5); Immature Grans % 0.2 %; MCH 31.3 pg (27.0-33.0); MCHC 33.8 % (32.0-36.0); MCV 93 fL (80-95); MPV 12.3 fL (8.0-11.0); Platelet Count 122 10^3/uL (130-400); RBC 5.20 10^6/uL (4.36-5.78); RDW 12.9 % (11.8-14.1); RDW-SD 43.9 fL; WBC 9.79 10^3/uL (4.4-10.8)
[2025-06-22 11:52] LABS: ALT 16 U/L (16-63); AST 22 U/L (15-37); Albumin 3.2 g/dL (3.4-5.0); Alkaline Phosphatase 88 U/L (46-116); Anion Gap 4.0 mmol/L (3-11); BUN 10 mg/dL (7-18); Bilirubin, Total 0.7 mg/dL (0.2-1.0); CO2 34.0 mmol/L (21.0-32.0); Calcium 9.2 mg/dL (8.5-10.1); Chloride 102 mmol/L (98-107); Estimated GFR 64.17 (mL/min/1.73m2); Glucose 95 mg/dL (74-106); Potassium 4.5 mmol/L (3.5-5.1); Sodium 140 mmol/L (136-145); Total Protein 6.8 g/dL (6.4-8.2)
== END 2025-06-22 10:58 | disposition home or self-care (01) ==
LOC: LBO 10:57
PROVIDERS: PCP Family Medicine; Visit Provider Internal Medicine
DX: C61 Malignant neoplasm of prostate (principal)
CPT/HCPCS: 36415; 80053; 84153; 85025